=== PATIENT | male | born 1955 | race Caucasian/White ===

== ENCOUNTER 2019-10-10 09:08 | Inpatient (IN) ==
--- NOTE | 2019-10-10 09:53 | Diag Imaging Result Doc PS360 ---
EXAM: CHEST-PORTABLE 10/10/2019 HISTORY: stroke like symptoms TECHNIQUE: AP portable semiupright at 0949 COMMENT: There are diffuse nodular opacities over the left mid and lower lung suggesting pneumonia. The right lung is clear. There are no previous studies. IMPRESSION: Left lower lobe pneumonia. Electronically signed by Ananda Sosa 10/10/2019 9:51 AM
[2019-10-10 10:09] LABS: BASO# 0.02 X1000 (0.0-0.2); BASO% 0.3 % (0.0-0.8); HEMATOCRIT 45.7 % (42.0-52.0); HEMOGLOBIN 15.7 g/dL (14.0-18.0); IMM GRAN# 0.05 X1000 (0.0-0.04); IMM GRAN% 0.7 % (0.0-0.5); LYMPH# 0.65 X1000 (1.2-3.4); LYMPH% 8.9 % (20.5-51.1); MCH 31.3 PG (27-31); MCHC 34.4 g/dL (33-37); MCV 91.2 FL (81-99); MONO# 0.47 X1000 (0.11-0.59); MONO% 6.4 % (1.7-9.3); MPV 9.7 FL (7.4-10.4); NEUT# 6.15 X1000 (1.4-6.5); NEUT% 83.7 % (42.2-75.2); PLT 241 X1000 (130-400); RBC 5.01 XMIL (4.7-6.1); RDW 13.4 % (11.5-14.5); WBC 7.34 X1000 (4.8-10.8)
--- NOTE | 2019-10-10 10:10 | Diag Imaging Result Doc PS360 ---
EXAM: CT HEAD W/O CONTRAST HISTORY: altered mental status TECHNIQUE: CT head without intravenous contrast COMPARISON: None. FINDINGS: No parenchymal hemorrhage. No epidural or subdural hematoma. No subarachnoid hemorrhage. No mass identified on this noncontrasted exam. No hydrocephalus. Prominent mucus in the frontal, ethmoid, maxillary, and sphenoid sinuses.. IMPRESSION: 1.No hemorrhage 2.Sinusitis This exam was performed using automated exposure control, adjustment of mA or kV according to patient size, and/or use of iterative reconstruction technique. Electronically signed by Chong Miller 10/10/2019 10:08 AM
[2019-10-10] MEDS ORDERED: DUONEB (A & A) INH ONE (10:20)
[2019-10-10 10:21] LABS: INR 1.11; PROTIME 14.5 Seconds (11.0-16.0)
[2019-10-10 10:22] LABS: ALBUMIN 3.5 g/dL (3.5-5.0); CALCIUM 8.6 mg/dL (8.8-10.2); CREATININE 1.3 mg/dL (0.7-1.2); POTASSIUM 4.1 mmol/L (3.5-5.1); PTT 38.2 Seconds (22.3-41.8); TOTAL BILIRUBIN 0.83 mg/dL (0.20-1.00); TOTAL PROTEIN 6.9 g/dL (6.3-8.3)
[2019-10-10 10:29] LABS: ALLEN TEST YES; BE -1.4 mmoll (-3.0-3.0); BLOOD TYPE ARTERIAL; HCO3-(ACT) 23.5 mmoll (20.0-26.0); METHB 1.1 % (0.0-1.5); O2(CT) 19.4 mL/dL (15.0-23.0); PCO2(98.6) 32 mmHg (35-45); SAMPLE BLOOD; SAO2 88.6 % (95.0-100.0); THB 16.1 g/dL (11.5-17.4); pH(98.6) 7.44 (7.35-7.45)
[2019-10-10 10:31] LABS: PO2(98.6) 47 mmHg (60-100)
--- NOTE | 2019-10-10 10:31 | EKG Report ---
Test Performed on : 10/10/2019 10:29:50 AM Test Reason : Stroke like symptoms Blood Pressure : / mmHG Vent. Rate : 080 BPM Atrial Rate : 080 BPM P-R Int : 126 ms QRS Dur : 126 ms QT Int : 386 ms P-R-T Axes : 046 -60 083 degrees QTc Int : 445 ms Sinus rhythm. with premature atrial complexes. Left axis deviation Nonspecific intraventricular block Abnormal ECG No previous ECGs available Unconfirmed Result
[2019-10-10 10:32] LABS: MODALITY CANNULA
[2019-10-10] MEDS ORDERED: D50W SYRINGE IV ONE (10:33)
[2019-10-10] MEDS ORDERED: D50W SYRINGE ONE (10:38)
[2019-10-10] MEDS ORDERED: LEVAQUIN 500 MG/D5W 500 MG/100 ML IVPB IV ONE (11:09)
[2019-10-10 11:18] LABS: URINE SOURCE CATH
--- NOTE | 2019-10-10 11:19 | PROVIDER DOCUMENTATION ---
This chart was entered by Nicole Robbins Scribe, acting as scribe for Yrn Hernandez MD. HPI-Neurological Disorder - General Chief Complaint: Altered Mental Status Stated Complaint: AMS Time Seen by Provider: 10/10/19 09:38 Source: RN/ (RN), EMS Allergies/Adverse Reactions: Patient Allergies Allergy/AdvReac Type Severity Reaction Status Date / Time No Known Allergies Allergy Verified 10/10/19 11:13 Home Medications: Home Medication List Medication Instructions Recorded Confirmed Last Taken Type Unobtainable [Home Meds 10/10/19 10/10/19 Unknown History Unobtainable] - History of Present Illness-Neuro Nature of Presenting Problem: Patient is a 64 year old male who presents to the ED via EMS with altered mental status. EMS states patient's roommate found patient in the floor multiple times this morning. Patient is alert but does not answer questions appropriately. EMS reports patient's O2 sat was 82% on room air on their arrival. Severity: reports: mild Onset/Duration: reports: unsure Timing: reports: still present Context: reports: other (AMS) Character of Altered Mental Status: reports: confused Cognitive Baseline: alert but confused Similar Symptoms Previously?: Yes Recently seen or treated by another doctor?: No Review of Systems - Adult - REVIEW OF SYSTEMS - ADULT ROS:: unobtainable per condition Constitutional: reports: no symptoms reported Eyes: reports: no symptoms reported Ears, Nose, Mouth & Throat: reports: no symptoms reported Cardiovascular: reports: no symptoms reported Respiratory: reports: no symptoms reported Gastrointestinal: reports: no symptoms reported Genitourinary: reports: no symptoms reported Musculoskeletal: reports: no symptoms reported Integumentary: reports: no symptoms reported Neurological: reports: no symptoms reported Psychiatric: reports: no symptoms reported Endocrine: reports: no symptoms reported Hematologic/Lymphatic: reports: no symptoms reported Allergic/Immunologic: reports: no symptoms reported All Other Systems: Reviewed and Negative Past History - Adult - PAST MEDICAL HISTORY-ADULT Review of Records: reports: Old Records Reviewed, Nursing Assessment Review, Medications Reviewed, Social history reviewed & non-contributory. Major Childhood Illnesses: reports: denies history Cardiovascular: reports: denies history Respiratory: reports: denies history Gastrointestinal: reports: denies history Obstetrical/Gynecological: reports: denies history Genitourinary: reports: denies history Musculoskeletal: reports: denies history Neurological: reports: denies history Endocrine/Immune: reports: denies history Other Conditions: reports: denies history - IMMUNIZATION STATUS Childhood Immunizations: See Nurse Assessment Flu Vaccine: See Nurse Assessment - FAMILY HISTORY Family History: reviewed, not pertinent - SOCIAL HISTORY Smoking: other (unable to assess per patient's condition) Substance Use: other (unable to assess per patient's condition) Living Situation: friend Physical Exam- Neurological - Physical Exam-Neuro Initial Vital Signs Reviewed: Yes General Appearance: alert, other (confused). negative: lethargic HENMT: dental decay, other (dry mucous membranes). negative: pharyngeal erythema Head Injury: no evidence of injury. negative: active bleeding, lacerations Respiratory: chest non-tender, lungs clear, normal breath sounds. negative: rales, stridor Cardiovascular: regular rate, rhythm, no gallop. negative: systolic murmur Abdominal Exam: normal bowel sounds, non tender, soft. 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 negative: cyanosis, erythema Psych/Mental Status: disheveled, other (confused). negative: normal mood/affect Progress - PLAN OF CARE/RESULTS Progress/Plan/Lab Results: Vital Signs - 8 hr 10/10/19 09:15 10/10/19 09:27 10/10/19 09:30 Temperature 99.0 F Pulse Rate 80 81 Respiratory Rate 22 23 Blood Pressure 116/70 O2 Sat by Pulse Oximetry 91 L 87 L 75 L 10/10/19 09:31 10/10/19 10:42 Temperature Pulse Rate 80 75 Respiratory Rate 31 H 39 H Blood Pressure 106/60 125/68 O2 Sat by Pulse Oximetry 87 L 88 L Laboratory Results - last 24 hr 10/10/19 10/10/19 10/10/19 09:37 09:37 09:37 WBC 7.34 RBC 5.01 Hgb 15.7 Hct 45.7 MCV 91.2 MCH 31.3 H MCHC 34.4 RDW Std Deviation 13.4 Plt Count 241 MPV 9.7 Immature Gran % (Auto) 0.7 H Neut % (Auto) 83.7 H Lymph % (Auto) 8.9 L Traill % (Auto) 6.4 Eos % (Auto) 0.0 Baso % (Auto) 0.3 Immature Gran # (Auto) 0.05 H Neut # (Auto) 6.15 Lymph # (Auto) 0.65 L Traill # (Auto) 0.47 Eos # (Auto) 0.00 Baso # (Auto) 0.02 PT 14.5 INR 1.11 PTT (Actin FS) 38.2 Specimen Type Sample Site pH pCO2 pO2 HCO3 Base Excess Oxyhemoglobin ABG O2 Sat (Calculated) ABG O2 Saturation ABG Carboxyhemoglobin ABG Methemoglobin Angelito Test A-a O2 Difference Total Hemoglobin Lactate Blood Gas Modality FiO2 % Sodium 134 L Potassium 4.1 Chloride 90 L Carbon Dioxide 24 L Anion Gap 20 BUN 36 H Creatinine 1.3 H Estimated GFR/1.73 m2 55 BUN/Creatinine Ratio 28 Glucose 77 Calculated Osmolality 275 Calcium 8.6 L Total Bilirubin 0.83 AST 141 H ALT 44 Alkaline Phosphatase 59 Troponin T High Sens Total Protein 6.9 Albumin 3.5 Globulin 3.4 Albumin/Globulin Ratio 1.0 10/10/19 10/10/19 09:37 10:19 WBC RBC Hgb Hct MCV MCH MCHC RDW Std Deviation Plt Count MPV Immature Gran % (Auto) Neut % (Auto) Lymph % (Auto) Traill % (Auto) Eos % (Auto) Baso % (Auto) Immature Gran # (Auto) Neut # (Auto) Lymph # (Auto) Traill # (Auto) Eos # (Auto) Baso # (Auto) PT INR PTT (Actin FS) Specimen Type ARTERIAL Sample Site R RADIAL pH 7.44 pCO2 32 L pO2 47 L* HCO3 23.5 Base Excess -1.4 Oxyhemoglobin 86.0 L* ABG O2 Sat (Calculated) 19.4 ABG O2 Saturation 88.6 L ABG Carboxyhemoglobin 1.90 ABG Methemoglobin 1.1 Angelito Test YES A-a O2 Difference 113.0 Total Hemoglobin 16.1 Lactate 1.80 Blood Gas Modality CANNULA FiO2 % 28.0 Sodium Potassium Chloride Carbon Dioxide Anion Gap BUN Creatinine Estimated GFR/1.73 m2 BUN/Creatinine Ratio Glucose Calculated Osmolality Calcium Total Bilirubin AST ALT Alkaline Phosphatase Troponin T High Sens 36 H* Total Protein Albumin Globulin Albumin/Globulin Ratio Orders Category Date Time Status Cardiac Monitoring DIRECTED Care 10/10/19 09:39 Active Finger Stick Blood Sugar (ED) DIRECTED Care 10/10/19 09:39 Active Oxygen Therapy- ED Nursing DIRECTED Care 10/10/19 09:39 Active Saline Loc NOW Care 10/10/19 09:39 Active CHEST-PORTABLE [RAD] Stat Exams 10/10/19 09:[address] HEAD W/O CONTRAST [CT] Stat Exams 10/10/19 09:39 Completed ABG [RESP] Routine Lab 10/10/19 10:19 Completed BLOOD CULTURE [BLDCUL] Stat Lab 10/10/19 09:37 Ordered CBC WITH ELECTRONIC DIFF [HEME] Stat Lab 10/10/19 09:37 Completed COMPREHENSIVE METABOLIC PANEL [CHEM] Stat Lab 10/10/19 09:37 Completed PROTIME WITH INR [COAG] Stat Lab 10/10/19 09:37 Completed PTT [COAG] Stat Lab 10/10/19 09:37 Completed TROPONIN T HIGH SENSITIVITY Stat Lab 10/10/19 09:37 Completed URINALYSIS W/POSS RFLX CULT [URINALYSIS] Stat Lab 10/10/19 10:30 Ordered URINE DRUG SCREEN Stat Lab 10/10/19 10:30 Ordered 0.9% Sodium Chloride Inj [Ns] 1,000 ml Med 10/10/19 09:39 Active IV 125 mls/hr Albuterol 2.5MG/Ipratrop 0.5MG [Duoneb (A & A)] Med 10/10/19 10:20 Discontinued 3 ml INH NOW ONE Dextrose 50% Syringe [D50w Syringe] Med 10/10/19 10:38 Discontinued 50 ml .ROUTE .STK-MED ONE Dextrose 50% Syringe [D50w Syringe] Med 10/10/19 10:33 Discontinued 50 ml IV NOW ONE Levofloxacin 500 mg/D5w [Levaquin 500 mg/D5w] Med 10/10/19 11:09 Active 500 mg in 100 ml IV NOW Aerosol Treatments Routine Oth 10/10/19 10:20 Active Aerosol Treatments Stat Oth 10/10/19 10:20 Active EKG [EKG] Stat Ther 10/10/19 09:39 Draft Result Diagrams: 10/10/19 09:37 10/10/19 09:37 - EKG 1 Time of EKG reading by physician:: 10:29 EKG Read and Signed by:: Yrn Hernandez EKG Interpretation (*Must complete 3 of following elements*): Abnormal Rate: 80 Rhythm: sinus rhythm with premature atrial complexes Occidental: left AR Interval: normal Comments: nonspecific intraventricular block - XRAY 1 XRAY Study: Chest Impression: See EMR Report ( EXAM: CHEST-PORTABLE 10/10/2019 HISTORY: stroke like symptoms TECHNIQUE: AP portable semiupright at 0949 COMMENT: There are diffuse nodular opacities over the left mid and lower lung suggesting pneumonia. The right lung is clear. There are no previous studies. IMPRESSION: Left lower lobe pneumonia. Electronically signed by Ananda Sosa 10/10/2019 9:51 AM 10/10/19 0951 Interpreting Physician: Ananda Sosa MD Dictated Date/Time: 10/10/19 0950 cc: Yrn Hernandez MD;) - CT/MRI 1 CT Study: Head Impression: See EMR Report ( EXAM: CT HEAD W/O CONTRAST HISTORY: altered mental status TECHNIQUE: CT head without intravenous contrast COMPARISON: None. FINDINGS: No parenchymal hemorrhage. No epidural or subdural hematoma. No subarachnoid hemorrhage. No mass identified on this noncontrasted exam. No hydrocephalus. Prominent mucus in the frontal, ethmoid, maxillary, and sphenoid sinuses.. IMPRESSION: 1.No hemorrhage 2.Sinusitis This exam was performed using automated exposure control, adjustment of mA or kV according to patient size, and/or use of iterative reconstruction technique. Electronically signed by Chong Miller 10/10/2019 10:08 AM 10/10/19 1008 Interpreting Physician: Chong Miller MD Dictated Date/Time: 10/10/19 1007 cc: Yrn Hernandez MD;) - CONSULTS/PCP/HOSPITALIST Notification #1 *Consult/PCP/Hospitalist*: Dr. Clinton Time Discussed: 10:42 Reason/Comments: Dr. Hernandez consulted with Dr. Clinton about patient Consult Disposition: other (admit to hospitalist) #2 Consult: KELLY Enriquez for Hospitalist Time Discussed: 11:06 Reason/Comments: Dr. Hernandez consulted with Zoe about patient. Consult Disposition: Will see in ED, Admit Departure - Departure Date of Disposition Decision: 10/10/19 Time of Disposition Decision: 11:10 DIAGNOSIS: Pneumonia, NSTEMI (non-ST elevated myocardial infarction), Altered mental status, Renal insufficiency, Hypoxia Disposition: ADMITTED INPATIENT 09 Certified Medical Emergency: Emergent Condition: Fair Referrals and Follow-Ups: None,PCP [Primary Care Provider] - - Critical Care Note This patient required my direct & personal management of CC.: No Total Time (mins): 35 Critical Care Statement: This patient required my direct personal management to treat or rule out processes, the absence of which, could potentiallly result in sudden, clinically significant life or limb threatening deterioration. Attestation - Physician/ KAYLEIGH Attestation Patient care was provided by Advanced Practice Provider:: No The physician spent face to face time with patient:: Yes Advanced Practice Provider documentation review:: Supervising physician onsite and consulted in the evaluation and care of this patient. The physician did have a face to face encounter with the patient. This chart was documented by the indicated scribe, (Nicole Robbins Scribe) and accurately reflects the services I performed and decisions made by me, Yrn Hernandez MD, as attested by the provider's signature.
[2019-10-10] MEDS ORDERED: XOPENEX NEB INH ONE (11:20)
[2019-10-10 11:23] LABS: BILIRUBIN URINE NEGATIVE (NEGATIVE); BLOOD URINE LARGE (NEGATIVE); COLOR YELLOW; GLUCOSE URINE NEGATIVE (NEGATIVE); KETONE URINE 40 mg/dL (NEGATIVE); LEUKOCYTES URINE NEGATIVE (NEGATIVE); NITRITE URINE NEGATIVE (NEGATIVE); PROTEIN URINE 300 mg/dL (NEGATIVE); SP GRAVITY URINE 1.023; TURBIDITY URINE HAZY (CLEAR); UROBILINOGEN URINE 2 mg/dL (NORMAL)
[2019-10-10 11:30] LABS: UR EPITHELIAL CELLS <10 /HPF (<10); URINE BACTERIA NEGATIVE /HPF; URINE RBC <10 /HPF (<10); URINE WBC 20-40 /HPF (<10)
[2019-10-10] MEDS ORDERED: NS NEB INH SCH (11:30)
[2019-10-10 11:52] LABS: URINE CASTS GRANULAR PRESENT; URINE CRYSTALS NONE SEEN
[2019-10-10 12:07] LABS: UR AMPHETAMINES QUAL NONE DETECTED (NONE DETECT); UR BARBITUATES QUAL NONE DETECTED (NONE DETECT); UR BENZODIAZEPIN QUAL NONE DETECTED (NONE DETECT); UR CANNABINOIDS QUAL NONE DETECTED (NONE DETECT); UR COCAINE QUAL NONE DETECTED (NONE DETECT); UR METHADONE QUAL NONE DETECTED (NONE DETECT); UR OPIATES QUAL NONE DETECTED (NONE DETECT); UR OXYCODONE QUAL NONE DETECTED (NONE DETECT); UR PCP QUAL NONE DETECTED (NONE DETECT)
[2019-10-10] MEDS: DUONEB (A & A) INH SCH ×4 (12:13→23:20)
[2019-10-10] MEDS ORDERED: DUONEB (A & A) INH PRN (12:13)
[2019-10-10] MEDS ORDERED: ASPIRIN PR ONE (12:13)
[2019-10-10] MEDS ORDERED: NS 1,000 ML IV ONE (12:13)
--- NOTE | 2019-10-10 13:03 | PROVIDER PROGRESS NOTE ---
Progress Note Pulmonary additional note: Full dictation to follow. I have seen the case, reviewed the EMR, labs, latest images and other medical te ams notes. Also reviewed the SET OFF PRESS OPERATOR notes and signed necessary form(s). I have noted changes in condition if any from yesterday and did orders. Please see also signed progress sheet. Prognosis: Guarded for now. I reviewed notes from ER MD and CXR A. Respiratory failure. Pneumonia. Hypoxia. I will consider CTA if pneumonia doesn't explain hypoxia completely. I spent 33 minutes in this process.
--- NOTE | 2019-10-10 14:00 | PROVIDER PROGRESS NOTE ---
Progress Note Patient was seen and examined. A full dictation to follow.
[2019-10-10 14:22] LABS: URINE SOURCE CATH
[2019-10-10 14:23] LABS: CK INDEX 0.3 (0.0-2.5); CK-MB 6.3 ng/mL (0.0-5.0)
[2019-10-10 14:33] LABS: BILIRUBIN URINE NEGATIVE (NEGATIVE); BLOOD URINE LARGE (NEGATIVE); COLOR YELLOW; GLUCOSE URINE 200 mg/dL (NEGATIVE); KETONE URINE 20 mg/dL (NEGATIVE); LEUKOCYTES URINE NEGATIVE (NEGATIVE); NITRITE URINE NEGATIVE (NEGATIVE); PROTEIN URINE 200 mg/dL (NEGATIVE); SP GRAVITY URINE 1.021; TURBIDITY URINE HAZY (CLEAR); UROBILINOGEN URINE 2 mg/dL (NORMAL)
[2019-10-10 14:41] LABS: UR EPITHELIAL CELLS >10 /HPF (<10); URINE BACTERIA NEGATIVE /HPF; URINE RBC <10 /HPF (<10); URINE WBC <10 /HPF (<10)
--- NOTE | 2019-10-10 14:51 | EKG Report ---
Test Performed on : 10/10/2019 2:37:51 PM Test Reason : Elevated Troponin Blood Pressure : / mmHG Vent. Rate : 087 BPM Atrial Rate : 087 BPM P-R Int : 152 ms QRS Dur : 102 ms QT Int : 340 ms P-R-T Axes : 080 -61 080 degrees QTc Int : 409 ms Sinus rhythm. with occasional premature ventricular complexes. Left anterior fascicular block Abnormal ECG When compared with ECG of 10-OCT-2019 10:29, (Unconfirmed) premature ventricular complexes. are now present premature atrial complexes. are no longer present Confirmed by Azael GOLDBERG, Gareth Sunshine ([id number]) on 10/11/2019 10:20:35 AM
[2019-10-10 14:52] LABS: URINE CASTS GRANULAR PRESENT
[2019-10-10] MEDS ORDERED: LEVAQUIN 500 MG/D5W 500 MG/100 ML IVPB ONE (17:01)
--- NOTE | 2019-10-10 17:57 | Diag Imaging Result Doc PS360 ---
EXAM: CT THORAX W/O CONTRAST HISTORY: pneumonia extensive left lung TECHNIQUE: CT chest without intravenous contrast COMPARISON: None. FINDINGS: No pleural effusions. No cardiomegaly. No aortic aneurysm. Mildly prominent mediastinal and hilar lymph nodes. Several of these are calcified in the left hilum. There are dense nodular infiltrates in the left lower lobe with smaller infiltrates inferiorly in the left upper lobe and inferiorly in the right lower lobe. There are also small infiltrates in the right upper lobe. Air bronchograms are present in the left lower lobe. Left upper lobe granuloma. IMPRESSION: Bilateral pneumonia most pronounced in the left lower lobe. This exam was performed using automated exposure control, adjustment of mA or kV according to patient size, and/or use of iterative reconstruction technique. Electronically signed by Chong Miller 10/10/2019 5:54 PM
[2019-10-10] MEDS: MAXIPIME 2 GM/NS 2 GM/100 ML IVPB IV SCH (19:05)
--- NOTE | 2019-10-10 19:35 | HISTORY AND PHYSICAL ---
PRIMARY CARE PROVIDER: Unknown. CHIEF COMPLAINT: Per EMR, altered mental status. HISTORY OF PRESENT ILLNESS: Mr. Waldron is a 64-year-old gentleman who presented to the ED via EMS with altered mental status. EMS stated that the patient's roommate found him on the floor multiple times. His O2 saturation was found to be 82% on room air. ED spoke with the patient's estranged , Vandana, who stated they have been estranged since 2009. She did state that he had smoked marijuana laced with something 2 years ago and has had issues with his mental state since that time. She believes that he has asthma, but is not on any medications. She believes his father has dementia, hypoxia, as well as heart issues. Workup in the ED showed positive troponins. Head CT did not show any thing acute. Chest x-ray showed a left lower lobe pneumonia. He was also hypoxemic and hypercarbic and placed on BiPAP. PAST MEDICAL HISTORY: Really unknown, besides some asthma. PAST SURGICAL HISTORY: Unknown. FAMILY HISTORY: Unknown. SOCIAL HISTORY: He lives with a roommate. REVIEW OF SYSTEMS: Hard to obtain secondary to the patient being altered. PHYSICAL EXAMINATION: VITAL SIGNS: Temperature was 99 degrees, heart rate 87, respirations 43, blood pressure 123/80, O2 is 99% on BiPAP. GENERAL: Mr. Waldron is a 64-year-old gentleman who appears unkept, lying on the stretcher on BiPAP. He does not awaken to voice. He awakens to tactile stimuli. He was able to state his name and then falls back to sleep. He could not tell me where he was. He fell back asleep after each question. HEENT: Atraumatic, normocephalic. PERRL. NECK: Supple. Trachea midline. CARDIOVASCULAR: S1, S2 appreciated. No murmurs, gallops, or rubs noted. RESPIRATORY: Lung sounds decreased airway entry throughout all lung rodas. GI: Appear to be soft, nontender, nondistended. Hypoactive bowel sounds in 4 quadrants. EXTREMITIES: Lower extremities negative for edema. NEUROLOGIC: The patient was lethargic. He did only awaken to tactile stimuli. He did know his name, did not really answer any other questions, fell back asleep easily. DIAGNOSTIC DATA: Head CT: No hemorrhage, sinusitis. Chest x-ray: Left lower lobe pneumonia. LABORATORY DATA: White count 7, hemoglobin and hematocrit 15 and 45, platelet count is 241,000. ABG: PH 7.44, pCO2 32, PO2 47. Bicarb 23, O2 of 88. Lactate 1.8. Chemistry: Sodium 134, potassium 4.1, BUN 36, creatinine 1.3, blood glucose is 116, AST 141. Troponin was 36. Toxicology screen was negative. ASSESSMENT AND PLAN: 1. Acute respiratory failure secondary to hypoxemia and left lower lobe pneumonia. The patient was initially put on nasal cannula, Ventimask and BiPAP. He is being followed by pulmonology. Continue to follow their recommendations. 2. Left lower lobe pneumonia. The patient does not have a white count. His lactate is normal. Low-grade fever, but not tachycardic. Continue with IV antibiotics, bronchodilators, and aggressive pulmonary toilet. Again, followed by pulmonology. 3. Positive troponin. Electrocardiogram showing a sinus rhythm with premature atrial contractions and a left axis deviation, nonspecific interventricular block. We will continue to trend his cardiac enzymes. Check an echocardiogram. Consult Dr. Clinton. We will do full-dose aspirin p.r. now. 4. Altered mental status. Unsure if this is related to infectious etiology or from his hypoxemia. His head CT was negative. Continue to monitor his neural status closely. 5. Acute kidney injury. We will continue with IV hydration. 6. Further recommendation to follow physician evaluation, laboratory and pending diagnostic data with a D-dimer and flu swab, and echocardiogram. Dictated by KELLY Woodruff for Tabby Travis MD cc: MD Jason Oreilly MD Mamoun I. Najjar, MD I performed a face to face encounter on the patient. I reviewed all labs and imaging on the patient. I agree with the H&P as dictated. [facility]
[2019-10-10] MEDS: ZYVOX 600 MG/D5W 600 MG/300 ML IVPB IV SCH (20:22)
[2019-10-10] MEDS: NS 1,000 ML IV PRN (20:31)
--- NOTE | 2019-10-10 21:29 | CARDIOLOGY CONSULTATION ---
DATE: 10/10/2019 CHIEF COMPLAINT: Dyspnea. REASON FOR CONSULTATION: Abnormal troponin level, suspected myocardial infarction. HISTORY: This is a 64-year-old male who was brought to the ER apparently by his roommate. There is no really way of obtaining any history from him. Right now he is in respiratory distress with a BiPAP mask on, low oxygen and low blood pressure. The patient appears to be confused, and he cannot give me a straight answer. Initially, they have done a series of studies including a head CT that has been reported as no hemorrhage and presence of sinusitis. A chest x-ray was done that is consistent with left lower lobe pneumonia. An electrocardiogram has been done that is really benign. It shows sinus rhythm with a left axis deviation. No ST-segment shifts. This EKG has been repeated at 2:37 p.m. and looks the same. PVC was noted on the second one. They have done 2 high sensitivity troponin levels. The first one was 36 at 9:37 a.m. The second one was 37 ng/L at 12:59 p.m. CK-MB fraction is 6.3; however, the index is 0.3. CPK total 1874. The reported complaint was that he was falling multiple times at home. His oxygen level was very low on the blood gases. pO2 was 47. pCO2 was 32, pH 7.44. Right now, he has been given levofloxacin inhalers and IV fluids. PAST MEDICAL HISTORY: Not obtainable. PAST SURGICAL HISTORY: Not obtainable. SOCIAL HISTORY: Not obtainable. FAMILY HISTORY: Not obtainable. MEDICATION LIST: Unknown. REVIEW OF SYSTEMS: Not obtainable at this time. PHYSICAL EXAMINATION: Vital signs: Blood pressure 107/82, temperature is 97.4 degrees, pulse 94, respirations 27. General: The patient is awake, confused. His skin is mottled, especially in the knees and feet. Pulses are diminished. He is skinny. Neck: Veins are not distended. Chest: Shows decreased excursion of the bases with diminished breath sounds bilaterally. I do not hear rales. Cardiovascular: Heart sounds are regular rhythmic. I do not hear a gallop or murmur. Abdomen: Soft, nontender. No masses or hepatomegaly. Neurological: He appears to be confused. Moves 4 extremities. LABORATORY DATA: His white cell count is 7340, hemoglobin 15.7, hematocrit 45.7. MCV is 91.2. IMPRESSION: 1. Patient who presents apparently with left lower lobe pneumonia with confusion, probably toxic. 2. Hypoxemia secondary to pneumonia. 3. Elevation in troponin level at this time is really nonspecific. It probably corresponds to pneumonia. His EKG does not suggest any acute ischemic cardiac process. RECOMMENDATIONS: At this time, we have ordered additional testing including D-dimer, C-reactive protein, blood culture, sedimentation rate. A 2D echocardiogram has been requested. We will review it, and we will give further advice. The patient at this time is noncooperative. I will have to probably fill in all these blanks in his database once he is able to tell me something. At this time, he is really not in any condition to provide any information. We will follow his course in the hospital. At this time, the hospitalist service is in charge of his care. cc: Jason Clinton MD
[2019-10-10 21:30] LABS: CK INDEX 0.3 (0.0-2.5); CK-MB 3.83 ng/mL (0.0-5.0)
--- NOTE | 2019-10-10 22:59 | ECHO REPORT ---
ORDER DATE: 10/10/2019 MEASUREMENTS: Left ventricular internal diameter in diastole 3.4. SUMMARY: 1. Very difficult study for interpretation due to very limited acoustic window quality. Intravenous echocontrast agent Optison was utilized to enhance endocardial definition. 2. The aortic valve is not well imaged. Peak gradient across the aortic valve is less than 10 mmHg, thus excluding any significant aortic stenosis. Mitral and tricuspid valves are without gross structural abnormality. Pulmonic valve is not well demonstrated. The aortic root is normal in size. 3. Grossly normal left ventricular dimensions demonstrated. The estimated left ventricular ejection fraction appears to be at least 50%. Regional wall motion analysis is challenging, given limitations of the study. There appears to be hypokinesis of the apical anterior wall. The left atrium, right atrium and right ventricle are grossly normal in size with grossly preserved right ventricular systolic function. 4. No pericardial effusion. 5. Inferior vena cava not well demonstrated. cc: Ben Tello MD
[2019-10-11] MEDS: NS 1,000 ML IV PRN (02:19)
[2019-10-11] MEDS: DUONEB (A & A) INH SCH ×6 (03:35→23:17)
[2019-10-11] MEDS: MAXIPIME 2 GM/NS 2 GM/100 ML IVPB IV SCH ×2 (03:53→17:12)
--- NOTE | 2019-10-11 04:17 | CONSULTATION ---
DATE OF CONSULTATION: 10/10/2019 . REQUESTING PROVIDER: Dr. Tabby Travis. REASON FOR CONSULTATION: Respiratory failure, pneumonia. HISTORY OF PRESENT ILLNESS: This is a 64-year-old male with no medical history. He presented to the ER via EMS this morning with altered mental status and oxygen desaturation. Initial chest x-ray revealed left lower lobe pneumonia. Blood work showed elevated D-dimer, hypoxemia with PO2 of 47, elevated BUN and creatinine, and a critically high troponin T high sensitivity. Urinalysis positive for ketones, protein, glucose, with a large amount of urine blood. The patient currently is lying in the ER stretcher. He is on a BiPAP mask. He did not answer questions appropriately. His urine does have a strong odor. All other information is obtained from the E-chart. PAST MEDICAL AND SURGICAL HISTORY: Unknown. FAMILY HISTORY: Unknown. SOCIAL HISTORY: The patient apparently lives in an apartment with a roommate. Unknown about tobacco, alcohol or illicit drug use. ALLERGIES: Unknown. REVIEW OF SYSTEMS: Unable to be obtained. PHYSICAL EXAMINATION: Vital Signs: Temperature 97.4, blood pressure 124/80, pulse 87, respiratory rate 43, oxygen saturation 99% with a BiPAP mask on. General: Some moderate respiratory distress. HEENT: Atraumatic, normocephalic. Trachea midline. Oral mucosa pink and dry. Respiratory: Tachypneic. Increased work of breathing, but no accessory muscle use. Clear to auscultation bilaterally. Cardiovascular: Regular rate and rhythm. Gastrointestinal: Soft, nontender, nondistended. Normoactive bowel sounds in all 4 quadrants. Extremities: No pedal edema. No cyanosis. No clubbing. Dorsalis pedis 1+ bilaterally. Neurologic: Alert but confused, not answering questions appropriately, not following commands. ASSESSMENT: This is a 64-year-old male with no medical history. He has been admitted with pneumonia, non ST-elevated myocardial infarction, altered mental status, renal insufficiency, and hypoxia. 1. Acute hypoxic respiratory failure. 2. Pneumonia most pronounced in the left lower lobe. 3. Non ST-elevated myocardial infarction. 4. Altered mental status. 5. Renal insufficiency with possible UTI. PLAN: 1. Continue supplemental oxygen. Continue BiPAP as needed. 2. Continue antibiotic and bronchodilators. 3. Follow up with troponin T high sensitivity, CBC, CMP, ABG, blood culture, urine culture and sputum culture. CT of the thorax is pending. 4. Further recommendations pending hospital course. Thank you for the courtesy of this consultation. Dictated by KELLY Min for Marv Campbell MD cc: KELLY Min MD [facility]
[2019-10-11 04:47] LABS: ALLEN TEST YES; BE -1.8 mmoll (-3.0-3.0); BLOOD TYPE ARTERIAL; HCO3-(ACT) 23.5 mmoll (20.0-26.0); METHB 0.1 % (0.0-1.5); MODALITY VENTIMASK; O2(CT) 24.6 mL/dL (15.0-23.0); O2HB 97.4 % (95.0-99.0); PCO2(98.6) 42 mmHg (35-45); PO2(98.6) 89 mmHg (60-100); SAMPLE BLOOD; SAO2 100.6 % (95.0-100.0); pH(98.6) 7.36 (7.35-7.45)
[2019-10-11] MEDS: ZYVOX 600 MG/D5W 600 MG/300 ML IVPB IV SCH ×2 (06:00→17:12)
--- NOTE | 2019-10-11 07:17 | Diag Imaging Result Doc PS360 ---
EXAM: CHEST-PORTABLE 10/11/2019 HISTORY: Pneumonia TECHNIQUE: AP portable at 0552 COMMENT: There are alveolar opacities throughout the left lower lobe and to some extent in the right middle lobe. The latter is worse than on the previous study of 10/10/2019. IMPRESSION: Bronchopneumonia. Electronically signed by Ananda Sosa 10/11/2019 7:15 AM
[2019-10-11 07:18] LABS: BASO# 0.01 X1000 (0.0-0.2); BASO% 0.1 % (0.0-0.8); HEMOGLOBIN 13.2 g/dL (14.0-18.0); IMM GRAN# 0.02 X1000 (0.0-0.04); IMM GRAN% 0.2 % (0.0-0.5); LYMPH# 0.53 X1000 (1.2-3.4); LYMPH% 6.3 % (20.5-51.1); MCH 31.3 PG (27-31); MCHC 33.8 g/dL (33-37); MCV 92.4 FL (81-99); MONO# 0.43 X1000 (0.11-0.59); MONO% 5.1 % (1.7-9.3); MPV 9.9 FL (7.4-10.4); NEUT# 7.38 X1000 (1.4-6.5); NEUT% 88.3 % (42.2-75.2); PLT 203 X1000 (130-400); RBC 4.22 XMIL (4.7-6.1); RDW 13.4 % (11.5-14.5); WBC 8.37 X1000 (4.8-10.8)
[2019-10-11] MEDS ORDERED: NS 1,000 ML IV PRN (07:49)
[2019-10-11 07:50] LABS: AGAP 14; ALB/GLOB RATIO 1.1; ALBUMIN 2.7 g/dL (3.5-5.0); ALKALINE PHOSPHATASE 55 U/L (32-122); BUN 34 mg/dL (8-22); CALCIUM 7.3 mg/dL (8.8-10.2); CHLORIDE 102 mmol/L (98-107); COSMO 284; CREATININE 1.1 mg/dL (0.7-1.2); ESTIMATED GFR > 60; GLUCOSE 119 mg/dL (70-104); GOT 100 U/L (10-34); GPT 33 U/L (10-44); POTASSIUM 3.9 mmol/L (3.5-5.1); SODIUM 138 mmol/L (136-145); TCO2 22 mmol/L (25-35); TOTAL BILIRUBIN 0.76 mg/dL (0.20-1.00); TOTAL PROTEIN 5.1 g/dL (6.3-8.3)
[2019-10-11 08:24] LABS: BANDS 2 % (0-1); BASO 2 % (0-1); LYMPHS 3 % (21-51); MONO 5 % (1-9); NRBC 1 % (0-0); SEGS 88 % (42-75)
--- NOTE | 2019-10-11 09:54 | PROVIDER PROGRESS NOTE ---
Progress Note Dr. Campbell Progress Note/Pulmonary and or critical care We appreciated progress of care, Complications, change in diagnosis, and instructions to patient under direct supervision of Dr. Campbell. Subjective: We note the level of consciousness, bed (chair) position, family presence (if any), level of lethargy, feeling of symptoms, and changes from baseline condition/symptom. The patient still appears to be confused with hallucination at times although he is clinically improving. He does not answer simple questions appropriately. He is on NC 3L and tolerates well. No fever overnight. BP stays low. Patient denies current tobacco use, but apparently per his , he is a daily heavy smoker. Objective: Vital Signs: We reviewed EMR current values for Pulse rate, Blood pressure, Pulse rate, respiratory rate and Pulse oximetry. Also noted other values and trends if present (e.g. I/O, CVP). Vital Signs 10/10/19 14:31 10/10/19 15:00 10/10/19 15:30 Temperature Pulse Rate 87 92 H 91 H Respiratory Rate 38 H 28 H 25 H Blood Pressure 74/58 85/60 102/69 O2 Sat by Pulse Oximetry 97 95 98 10/10/19 16:00 10/10/19 16:30 10/10/19 17:01 Temperature 101.8 F H 98.6 F Pulse Rate 86 90 88 Respiratory Rate 31 H 30 H 30 H Blood Pressure 103/56 102/77 95/76 O2 Sat by Pulse Oximetry 90 L 99 95 10/10/19 17:46 10/10/19 17:48 10/10/19 18:01 Temperature 101.8 F H Pulse Rate 86 89 88 Respiratory Rate 31 H 40 H 54 H Blood Pressure 195/166 101/69 103/56 O2 Sat by Pulse Oximetry 90 L 94 L 96 10/10/19 18:15 10/10/19 18:30 10/10/19 18:45 Temperature Pulse Rate 89 90 93 H Respiratory Rate 48 H 40 H 48 H Blood Pressure 97/59 96/64 102/59 O2 Sat by Pulse Oximetry 93 L 94 L 92 L 10/10/19 19:00 10/10/19 19:15 10/10/19 19:30 Temperature Pulse Rate 88 86 87 Respiratory Rate 24 44 H 47 H Blood Pressure 106/64 103/67 103/62 O2 Sat by Pulse Oximetry 96 95 94 L 10/10/19 19:39 10/10/19 19:45 10/10/19 20:00 Temperature 99.3 F Pulse Rate 92 H 89 88 Respiratory Rate 20 44 H 46 H Blood Pressure 98/60 103/59 O2 Sat by Pulse Oximetry 94 L 94 L 93 L 10/10/19 20:15 10/10/19 20:30 10/10/19 20:45 Temperature Pulse Rate 90 87 86 Respiratory Rate 41 H 44 H 49 H Blood Pressure 108/62 112/52 90/65 O2 Sat by Pulse Oximetry 97 96 95 10/10/19 21:00 10/10/19 21:15 10/10/19 21:30 Temperature Pulse Rate 87 89 92 H Respiratory Rate 45 H 50 H 45 H Blood Pressure 100/63 95/61 100/63 O2 Sat by Pulse Oximetry 97 97 94 L 10/10/19 21:45 10/10/19 22:00 10/10/19 22:15 Temperature Pulse Rate 83 87 86 Respiratory Rate 37 H 38 H 39 H Blood Pressure 95/60 99/63 92/55 O2 Sat by Pulse Oximetry 93 L 93 L 93 L 10/10/19 22:30 10/10/19 22:45 10/10/19 23:00 Temperature Pulse Rate 86 87 83 Respiratory Rate 38 H 37 H 35 H Blood Pressure 94/56 94/60 95/60 O2 Sat by Pulse Oximetry 93 L 94 L 94 L 10/10/19 23:15 10/10/19 23:30 10/10/19 23:45 Temperature Pulse Rate 82 79 87 Respiratory Rate 33 H 33 H 33 H Blood Pressure 96/61 90/60 90/57 O2 Sat by Pulse Oximetry 95 96 96 10/11/19 00:00 10/11/19 01:00 10/11/19 02:00 Temperature 99 F Pulse Rate 82 83 91 H Respiratory Rate 45 H 35 H 31 H Blood Pressure 97/62 92/59 103/61 O2 Sat by Pulse Oximetry 99 96 96 10/11/19 03:00 10/11/19 04:00 10/11/19 05:00 Temperature 99 F Pulse Rate 78 90 86 Respiratory Rate 30 H 33 H 32 H Blood Pressure 91/65 92/62 98/60 O2 Sat by Pulse Oximetry 96 94 L 97 10/11/19 06:00 10/11/19 06:15 10/11/19 06:30 Temperature Pulse Rate 85 77 78 Respiratory Rate 39 H 31 H 30 H Blood Pressure 95/64 O2 Sat by Pulse Oximetry 99 95 97 10/11/19 06:45 10/11/19 07:00 10/11/19 07:20 Temperature Pulse Rate 89 77 88 Respiratory Rate 35 H 32 H 24 Blood Pressure 99/65 O2 Sat by Pulse Oximetry 98 99 99 10/11/19 08:00 10/11/19 09:01 10/11/19 10:02 Temperature 97.6 F Pulse Rate 73 86 81 Respiratory Rate 31 H 24 30 H Blood Pressure 92/70 92/64 98/63 O2 Sat by Pulse Oximetry 97 94 L 95 10/11/19 11:01 10/11/19 11:24 10/11/19 12:00 Temperature 97.5 F L Pulse Rate 84 84 Respiratory Rate 29 H 29 H Blood Pressure 93/75 93/75 O2 Sat by Pulse Oximetry 98 98 98 10/11/19 12:01 Temperature Pulse Rate 92 H Respiratory Rate 36 H Blood Pressure 95/66 O2 Sat by Pulse Oximetry 96 Intake & Output 10/10/19 10/11/19 10/11/19 19:59 07:59 19:59 Intake Total 2650 / 2650 Output Total 435 / 1135 700 / 1135 Balance -435 / 1515 1950 / 1515 Intake: Intake, IV Amount 1950 / 1950 Intake, IVPB 700 / 700 Output: Output, Urine Void Amount 35 / 35 Output, Urine Flores Amount 400 / 1100 700 / 1100 Physical Examination: General: Lying in bed with no acute distress noted. HEENT: Trachea midline. Mucus pink and moist. Chest: Symmetrical excursion. Diminished breathing sounds bilaterally. Expiratory coarseness bilaterally with left worse than right. CVS: Regular rate and rhythm. Abdomen: Soft. Distended, mildly. Bowel sounds present. Extremities: No pedal edema. Dorsalis pedis diminished b/l. Neuro: Awake. Confused. Not answering simple questions appropriately. Labs and Radiology: Reviewed available labs and radiology values available at time of EMR review. Laboratory Results 10/10/19 10/10/19 10/10/19 10:29 12:33 12:59 WBC RBC Hgb Hct MCV MCH MCHC RDW Std Deviation Plt Count MPV Immature Gran % (Auto) Neut % (Auto) Lymph % (Auto) [place] % (Auto) Eos % (Auto) Baso % (Auto) Immature Gran # (Auto) Neut # (Auto) Lymph # (Auto) [place] # (Auto) Eos # (Auto) Baso # (Auto) Segmented Neutrophils Band Neutrophils Lymphocytes Monocytes Basophils Nucleated RBCs ESR D-Dimer, Quantitative Specimen Type Sample Site pH pCO2 pO2 HCO3 Base Excess Oxyhemoglobin ABG O2 Sat (Calculated) ABG O2 Saturation ABG Carboxyhemoglobin ABG Methemoglobin Angelito Test A-a O2 Difference Total Hemoglobin Lactate Blood Gas Modality FiO2 % Sodium Potassium Chloride Carbon Dioxide Anion Gap BUN Creatinine Estimated GFR/1.73 m2 BUN/Creatinine Ratio Glucose POC Glucose 50 L 116 H D Calculated Osmolality Calcium Total Bilirubin AST ALT Alkaline Phosphatase Creatine Kinase Creatine Kinase Index 0.3 CK-MB (CK-2) 6.30 H Troponin T High Sens C-Reactive Prot, Quant Total Protein Albumin Globulin Albumin/Globulin Ratio Urine Source Urine Color Urine Turbidity Urine pH Ur Specific Anna Urine Protein Ur Glucose (Stick) Ur Ketones (Stick) Urine Blood Urine Nitrite Urine Bilirubin Urobilinogen Dipstick Urine Leukocytes Urine WBC (Auto) Urine RBC (Auto) U Epithel Cells (Auto) Urine Bacteria (Auto) Urine Crystals Small Round Cells Urine Casts Urine Yeast-like Cells Immunoglobulins G,A,M 10/10/19 10/10/19 10/10/19 13:39 15:27 15:27 WBC RBC Hgb Hct MCV MCH MCHC RDW Std Deviation Plt Count MPV Immature Gran % (Auto) Neut % (Auto) Lymph % (Auto) [place] % (Auto) Eos % (Auto) Baso % (Auto) Immature Gran # (Auto) Neut # (Auto) Lymph # (Auto) [place] # (Auto) Eos # (Auto) Baso # (Auto) Segmented Neutrophils Band Neutrophils Lymphocytes Monocytes Basophils Nucleated RBCs ESR D-Dimer, Quantitative 6.18 H Specimen Type Sample Site pH pCO2 pO2 HCO3 Base Excess Oxyhemoglobin ABG O2 Sat (Calculated) ABG O2 Saturation ABG Carboxyhemoglobin ABG Methemoglobin Angelito Test A-a O2 Difference Total Hemoglobin Lactate Blood Gas Modality FiO2 % Sodium Potassium Chloride Carbon Dioxide Anion Gap BUN Creatinine Estimated GFR/1.73 m2 BUN/Creatinine Ratio Glucose POC Glucose Calculated Osmolality Calcium Total Bilirubin AST ALT Alkaline Phosphatase Creatine Kinase Creatine Kinase Index CK-MB (CK-2) Troponin T High Sens C-Reactive Prot, Quant 308.18 H Total Protein Albumin Globulin Albumin/Globulin Ratio Urine Source CATH Urine Color YELLOW Urine Turbidity HAZY Urine pH 6.0 Ur Specific Anna 1.021 Urine Protein 200 A Ur Glucose (Stick) 200 A Ur Ketones (Stick) 20 A Urine Blood LARGE A Urine Nitrite NEGATIVE Urine Bilirubin NEGATIVE Urobilinogen Dipstick 2 A Urine Leukocytes NEGATIVE Urine WBC (Auto) <10 Urine RBC (Auto) <10 U Epithel Cells (Auto) >10 A Urine Bacteria (Auto) NEGATIVE Urine Crystals Not Reportable Small Round Cells Not Reportable Urine Casts GRANULAR PRESENT Urine Yeast-like Cells Not Reportable Immunoglobulins G,A,M 10/10/19 10/10/19 10/10/19 15:27 16:28 20:08 WBC RBC Hgb Hct MCV MCH MCHC RDW Std Deviation Plt Count MPV Immature Gran % (Auto) Neut % (Auto) Lymph % (Auto) [place] % (Auto) Eos % (Auto) Baso % (Auto) Immature Gran # (Auto) Neut # (Auto) Lymph # (Auto) [place] # (Auto) Eos # (Auto) Baso # (Auto) Segmented Neutrophils Band Neutrophils Lymphocytes Monocytes Basophils Nucleated RBCs ESR 92 H D-Dimer, Quantitative Specimen Type Sample Site pH pCO2 pO2 HCO3 Base Excess Oxyhemoglobin ABG O2 Sat (Calculated) ABG O2 Saturation ABG Carboxyhemoglobin ABG Methemoglobin Angelito Test A-a O2 Difference Total Hemoglobin Lactate Blood Gas Modality FiO2 % Sodium Potassium Chloride Carbon Dioxide Anion Gap BUN Creatinine Estimated GFR/1.73 m2 BUN/Creatinine Ratio Glucose POC Glucose Calculated Osmolality Calcium Total Bilirubin AST ALT Alkaline Phosphatase Creatine Kinase 1498 H Creatine Kinase Index 0.3 CK-MB (CK-2) 3.83 Troponin T High Sens C-Reactive Prot, Quant Total Protein Albumin Globulin Albumin/Globulin Ratio Urine Source Urine Color Urine Turbidity Urine pH Ur Specific Anna Urine Protein Ur Glucose (Stick) Ur Ketones (Stick) Urine Blood Urine Nitrite Urine Bilirubin Urobilinogen Dipstick Urine Leukocytes Urine WBC (Auto) Urine RBC (Auto) U Epithel Cells (Auto) Urine Bacteria (Auto) Urine Crystals Small Round Cells Urine Casts Urine Yeast-like Cells Immunoglobulins G,A,M SEE COMMENTS 10/10/19 10/11/19 10/11/19 20:08 04:15 05:30 WBC RBC Hgb Hct MCV MCH MCHC RDW Std Deviation Plt Count MPV Immature Gran % (Auto) Neut % (Auto) Lymph % (Auto) [place] % (Auto) Eos % (Auto) Baso % (Auto) Immature Gran # (Auto) Neut # (Auto) Lymph # (Auto) [place] # (Auto) Eos # (Auto) Baso # (Auto) Segmented Neutrophils Band Neutrophils Lymphocytes Monocytes Basophils Nucleated RBCs ESR D-Dimer, Quantitative Specimen Type ARTERIAL Sample Site R RADIAL pH 7.36 pCO2 42 pO2 89 HCO3 23.5 Base Excess -1.8 Oxyhemoglobin 97.4 ABG O2 Sat (Calculated) 24.6 H ABG O2 Saturation 100.6 H ABG Carboxyhemoglobin 3.10 H ABG Methemoglobin 0.1 Angelito Test YES A-a O2 Difference 215.0 Total Hemoglobin 18.0 H Lactate 1.80 Blood Gas Modality VENTIMASK FiO2 % 50.0 Sodium 138 Potassium 3.9 Chloride 102 Carbon Dioxide 22 L Anion Gap 14 BUN 34 H Creatinine 1.1 Estimated GFR/1.73 m2 > 60 BUN/Creatinine Ratio 31 Glucose 119 H D POC Glucose Calculated Osmolality 284 Calcium 7.3 L D Total Bilirubin 0.76 AST 100 H ALT 33 Alkaline Phosphatase 55 Creatine Kinase Creatine Kinase Index CK-MB (CK-2) Troponin T High Sens 36 H* C-Reactive Prot, Quant Total Protein 5.1 L Albumin 2.7 L Globulin 2.4 Albumin/Globulin Ratio 1.1 Urine Source Urine Color Urine Turbidity Urine pH Ur Specific Anna Urine Protein Ur Glucose (Stick) Ur Ketones (Stick) Urine Blood Urine Nitrite Urine Bilirubin Urobilinogen Dipstick Urine Leukocytes Urine WBC (Auto) Urine RBC (Auto) U Epithel Cells (Auto) Urine Bacteria (Auto) Urine Crystals Small Round Cells Urine Casts Urine Yeast-like Cells Immunoglobulins G,A,M 10/11/19 10/11/19 05:30 05:30 WBC 8.37 RBC 4.22 L Hgb 13.2 L D Hct 39.0 L MCV 92.4 MCH 31.3 H MCHC 33.8 RDW Std Deviation 13.4 Plt Count 203 MPV 9.9 Immature Gran % (Auto) 0.2 Neut % (Auto) 88.3 H Lymph % (Auto) 6.[address] [place] % (Auto) 5.1 Eos % (Auto) 0.0 Baso % (Auto) 0.1 Immature Gran # (Auto) 0.02 Neut # (Auto) 7.38 H Lymph # (Auto) 0.[address] [place] # (Auto) 0.43 Eos # (Auto) 0.00 Baso # (Auto) 0.01 Segmented Neutrophils 88 H Band Neutrophils 2 H Lymphocytes 3 L Monocytes 5 Basophils 2 H Nucleated RBCs 1 H ESR D-Dimer, Quantitative Specimen Type Sample Site pH pCO2 pO2 HCO3 Base Excess Oxyhemoglobin ABG O2 Sat (Calculated) ABG O2 Saturation ABG Carboxyhemoglobin ABG Methemoglobin Angelito Test A-a O2 Difference Total Hemoglobin Lactate Blood Gas Modality FiO2 % Sodium Potassium Chloride Carbon Dioxide Anion Gap BUN Creatinine Estimated GFR/1.73 m2 BUN/Creatinine Ratio Glucose POC Glucose Calculated Osmolality Calcium Total Bilirubin AST ALT Alkaline Phosphatase Creatine Kinase 1021 H Creatine Kinase Index CK-MB (CK-2) Troponin T High Sens C-Reactive Prot, Quant Total Protein Albumin Globulin Albumin/Globulin Ratio Urine Source Urine Color Urine Turbidity Urine pH Ur Specific Anna Urine Protein Ur Glucose (Stick) Ur Ketones (Stick) Urine Blood Urine Nitrite Urine Bilirubin Urobilinogen Dipstick Urine Leukocytes Urine WBC (Auto) Urine RBC (Auto) U Epithel Cells (Auto) Urine Bacteria (Auto) Urine Crystals Small Round Cells Urine Casts Urine Yeast-like Cells Immunoglobulins G,A,M Dr. Campbell evaluated and additional note below. Evaluation time in minutes: 33 minutes. Assessment: Acute hypoxic respiratory failure Bilateral pneumonia, most pronounced in the left lower lobe AMS Elevation in troponin level Renal insufficiency. Improved. Tobacco use. Plan: Continue current treatment and supportive care per admitting and other teams on the case. Antibiotics. Bronchodilators. Input was appreciated from Admitting MD and other teams on the case. See additional notes by Dr. Campbell.
[2019-10-11] MEDS ORDERED: LOVENOX SUBQ ONE (10:07)
[2019-10-11] MEDS ORDERED: LEVAQUIN 500 MG/D5W 500 MG/100 ML IVPB IV SCH (11:30)
--- NOTE | 2019-10-11 13:19 | PROVIDER PROGRESS NOTE ---
Progress Note Pulmonary additional note: Full dictation to follow. I have seen the case, reviewed the EMR, labs, latest images and other medical te ams notes. Also reviewed the CLASSIFIED AD TAKER notes and signed necessary form(s). I have noted changes in condition if any from yesterday and did orders. Please see also signed progress sheet. Prognosis: Guarded for now. Since yesterday, oxyegnation is satisfactory on VM 50%. ABG and Ct seen. He is awake but confused some. I appreciated input from Dr. Clinton. A. Respiratory failure. Pneumonia. Hypoxia. CT seen showing bilateral pneumonia. Case discussed with RN I spent 30 minutes in this process.
[2019-10-12] MEDS: DUONEB (A & A) INH SCH ×6 (03:23→23:50)
--- NOTE | 2019-10-12 03:50 | PROGRESS NOTE ---
DATE: 10/11/2019 SUBJECTIVE: The patient is alert and awake. He states that he does not remember what happened to bring him to the hospital, but he feels a lot better today. OBJECTIVE: Vital Signs: Temperature 97.8 degrees, blood pressure 102/66, heart rate 87, respirations 28, O2 saturation 98% on 3 L nasal cannula. General: This is a chronically ill- appearing, elderly male lying in bed in no acute distress. Heart: S1, S2 normal. Regular rate and rhythm. Lungs: Equal air entry bilaterally. Mild expiratory wheezes. Abdomen: Positive bowel sounds. Soft, nontender, nondistended. Extremities: No edema. No cyanosis. Neurologic: The patient is alert and oriented x3. LABS: White blood cell count 8, hemoglobin 13, hematocrit 39, platelets 203,000. Sodium 138, potassium 3.9, chloride 102, CO2 22, BUN 34, creatinine 1.1, glucose 119. CK 1021. Albumin 2.7. ASSESSMENT AND PLAN: 1. Acute hypoxemic respiratory failure secondary to pneumonia. Continue to treat the underlying infection. 2. Bilateral pneumonia. Continue on broad-spectrum antibiotics, bronchodilator therapy, supplemental oxygen, and will add incentive spirometry. Pulmonary is following. 3. Tobacco dependence. The patient has been counseled about smoking cessation. 4. Elevated troponin. The patient denies having any chest pain. An echocardiogram has been ordered. 5. Chronic obstructive pulmonary disease. Continue with the current treatment regimen. 6. Severe protein-calorie malnutrition. The patient has been started on a heart healthy diet. 7. Deep vein thrombosis prophylaxis. Continue on Lovenox. cc: Tabby Travis MD
[2019-10-12] MEDS: MAXIPIME 2 GM/NS 2 GM/100 ML IVPB IV SCH ×2 (03:55→16:43)
[2019-10-12] MEDS: LOVENOX SUBQ SCH (05:05)
[2019-10-12] MEDS: ZYVOX 600 MG/D5W 600 MG/300 ML IVPB IV SCH ×2 (05:05→17:43)
[2019-10-12 06:03] LABS: BASO# 0.03 X1000 (0.0-0.2); BASO% 0.3 % (0.0-0.8); EOS# 0.02 X1000 (0.0-0.7); EOS% 0.2 % (0.0-10.0); HEMATOCRIT 37.1 % (42.0-52.0); HEMOGLOBIN 12.7 g/dL (14.0-18.0); IMM GRAN# 0.04 X1000 (0.0-0.04); IMM GRAN% 0.5 % (0.0-0.5); LYMPH# 0.78 X1000 (1.2-3.4); LYMPH% 9.1 % (20.5-51.1); MCH 31.4 PG (27-31); MCHC 34.2 g/dL (33-37); MCV 91.6 FL (81-99); MONO# 0.47 X1000 (0.11-0.59); MONO% 5.5 % (1.7-9.3); MPV 9.9 FL (7.4-10.4); NEUT# 7.25 X1000 (1.4-6.5); NEUT% 84.4 % (42.2-75.2); PLT 225 X1000 (130-400); RBC 4.05 XMIL (4.7-6.1); RDW 13.2 % (11.5-14.5); WBC 8.59 X1000 (4.8-10.8)
[2019-10-12 06:32] LABS: AGAP 16; BUN 22 mg/dL (8-22); CALCIUM 7.8 mg/dL (8.8-10.2); CHLORIDE 100 mmol/L (98-107); COSMO 276; CREATININE 0.8 mg/dL (0.7-1.2); ESTIMATED GFR > 60; GLUCOSE 103 mg/dL (70-104); POTASSIUM 3.3 mmol/L (3.5-5.1); SODIUM 136 mmol/L (136-145); TCO2 20 mmol/L (25-35)
--- NOTE | 2019-10-12 07:32 | PROVIDER PROGRESS NOTE ---
Progress Note Pulmonary additional note: I have seen and examined the case, reviewed the EMR, labs, latest images and other medical teams notes. Also reviewed the DATA ARCHITECT MANAGER notes and signed necessary form(s). I have noted changes in condition if any from yesterday and did orders. Please see also signed progress sheet. Since yesterday, he is alternating nasal cannula and RA, tolerating that. n antibiotics and bronchodilators. Prognosis: Guarded for now. I reviewed notes from Dr. Travis. I will order CXR in am Pneumonia bilaterally, respiratory failure is compensated and COPD. I asked administrative staff supervisor about condition changes and if they have any needs in regard to today conditions. I spent 31 minutes in this process.
[2019-10-12] MEDS ORDERED: KLOR-CON PO ONE (08:29)
--- NOTE | 2019-10-12 11:07 | EKG Report ---
Test Performed on : 10/12/2019 10:25:51 AM Test Reason : bradycardia Blood Pressure : / mmHG Vent. Rate : 078 BPM Atrial Rate : 078 BPM P-R Int : 170 ms QRS Dur : 098 ms QT Int : 394 ms P-R-T Axes : 072 -34 049 degrees QTc Int : 449 ms Sinus rhythm. with premature atrial complexes. Left axis deviation Septal infarct , age undetermined Abnormal ECG When compared with ECG of 10-OCT-2019 14:37, premature ventricular complexes. are no longer present premature atrial complexes. are now present Confirmed by Azael GOLDBERG, Gareth Sunshine ([id number]) on 10/13/2019 7:02:22 PM
--- NOTE | 2019-10-12 11:15 | PROVIDER PROGRESS NOTE ---
Progress Note Dr. Campbell Progress Note/Pulmonary and or critical care We appreciated progress of care, Complications, change in diagnosis, and instructions to patient under direct supervision of Dr. Campbell. Subjective: We note the level of consciousness, bed (chair) position, family presence (if any), level of lethargy, feeling of symptoms, and changes from baseline condition/symptom. The patient still appears to be confused, but is improving. Deny pain. He is able to answer some of my simple questions. He has been on room air since early this morning and tolerates well. No fever overnight. 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 He is waiting to be transferred to the medical floor. Objective: Vital Signs: We reviewed EMR current values for Pulse rate, Blood pressure, Pulse rate, respiratory rate and Pulse oximetry. Also noted other values and trends if present (e.g. I/O, CVP). Vital Signs 10/11/19 17:01 10/11/19 18:01 10/11/19 19:01 Temperature Pulse Rate 87 90 89 Respiratory Rate 29 H 31 H 25 H Blood Pressure 102/66 107/64 105/75 O2 Sat by Pulse Oximetry 97 97 98 10/11/19 19:37 10/11/19 20:00 10/11/19 20:01 Temperature 97.9 F Pulse Rate 80 81 93 H Respiratory Rate 24 23 29 H Blood Pressure 105/75 98/63 O2 Sat by Pulse Oximetry 96 93 L 93 L 10/11/19 20:15 10/11/19 20:30 10/11/19 20:45 Temperature Pulse Rate 107 H 96 H 93 H Respiratory Rate 29 H 15 38 H Blood Pressure O2 Sat by Pulse Oximetry 90 L 88 L 93 L 10/11/19 21:00 10/11/19 21:01 10/11/19 21:15 Temperature Pulse Rate 89 91 H 99 H Respiratory Rate 28 H 32 H 36 H Blood Pressure 90/63 O2 Sat by Pulse Oximetry 92 L 96 96 10/11/19 21:30 10/11/19 21:45 10/11/19 22:00 Temperature Pulse Rate 91 H 85 87 Respiratory Rate 26 H 21 20 Blood Pressure O2 Sat by Pulse Oximetry 94 L 94 L 96 10/11/19 22:01 10/11/19 22:15 10/11/19 22:30 Temperature Pulse Rate 89 92 H 83 Respiratory Rate 28 H 28 H 32 H Blood Pressure 119/57 O2 Sat by Pulse Oximetry 94 L 94 L 94 L 10/11/19 22:45 10/11/19 23:00 10/11/19 23:01 Temperature Pulse Rate 92 H 94 H 88 Respiratory Rate 24 24 17 Blood Pressure 100/64 O2 Sat by Pulse Oximetry 94 L 94 L 96 10/11/19 23:15 10/11/19 23:17 10/11/19 23:30 Temperature Pulse Rate 82 93 H Respiratory Rate 24 26 H Blood Pressure O2 Sat by Pulse Oximetry 95 94 L 92 L 10/11/19 23:45 10/12/19 00:00 10/12/19 00:01 Temperature 98.2 F Pulse Rate 98 H 81 93 H Respiratory Rate 32 H 30 H Blood Pressure 93/61 93/61 O2 Sat by Pulse Oximetry 95 93 L 93 L 10/12/19 01:01 10/12/19 02:01 10/12/19 03:02 Temperature Pulse Rate 84 83 78 Respiratory Rate 31 H 30 H 25 H Blood Pressure 105/62 101/66 95/59 O2 Sat by Pulse Oximetry 93 L 94 L 94 L 10/12/19 03:23 10/12/19 04:00 10/12/19 04:01 Temperature 98.5 F Pulse Rate 81 87 Respiratory Rate 24 27 H Blood Pressure 88/58 107/61 O2 Sat by Pulse Oximetry 96 94 L 92 L 10/12/19 05:01 10/12/19 06:01 10/12/19 07:00 Temperature Pulse Rate 83 79 80 Respiratory Rate 25 H 25 H 19 Blood Pressure 88/58 104/70 104/70 O2 Sat by Pulse Oximetry 92 L 94 L 94 L 10/12/19 08:00 10/12/19 08:24 10/12/19 09:00 Temperature 98.1 F Pulse Rate 71 75 80 Respiratory Rate 28 H 24 27 H Blood Pressure 97/61 101/64 O2 Sat by Pulse Oximetry 96 96 96 10/12/19 10:01 10/12/19 11:00 10/12/19 11:53 Temperature 98.4 F Pulse Rate 84 81 74 Respiratory Rate 29 H 30 H 22 Blood Pressure 106/74 98/67 116/67 O2 Sat by Pulse Oximetry 98 95 95 10/12/19 12:06 10/12/19 12:32 Temperature Pulse Rate 74 80 Respiratory Rate 20 Blood Pressure O2 Sat by Pulse Oximetry Intake & Output 10/11/19 10/12/19 10/12/19 19:59 07:59 19:59 Intake Total 1900 / 3740 1840 / 3740 780 / 780 Output Total 400 / 1752 1352 / 1752 600 / 600 Balance 1499 / 1987 / 1987 180 / 180 Intake: Intake, IV Amount 1400 / 2600 1200 / 2600 300 / 300 Intake, IVPB 400 / 400 Intake, Oral Amount 500 / 740 240 / 740 480 / 480 Output: Output, Urine Flores Amount 400 / 1752 1352 / 1752 600 / 600 Other: Percent of Meal Consumed 25% 25% 50% Physical Examination: General: Lying in bed with no acute distress noted. HEENT: Trachea midline. Mucus pink and moist. Poor dentition. Chest: Symmetrical excursion. Expiratory coarseness bilaterally with left worse than right. Mild inspiratory crackles on the right. CVS: Regular rate and rhythm. Abdomen: Soft. Distended, mildly. Bowel sounds present. Extremities: No pedal edema. Dorsalis pedis diminished b/l. Neuro: Awake. Able to answer simple questions appropriately. Able to follow simple commands. Labs and Radiology: Reviewed available labs and radiology values available at time of EMR review. Laboratory Results 10/12/19 10/12/19 05:30 05:30 WBC 8.59 RBC 4.05 L Hgb 12.7 L Hct 37.1 L MCV 91.6 MCH 31.4 H MCHC 34.2 RDW Std Deviation 13.2 Plt Count 225 MPV 9.9 Immature Gran % (Auto) 0.5 Neut % (Auto) 84.4 H Lymph % (Auto) 9.1 L Storey % (Auto) 5.5 Eos % (Auto) 0.2 Baso % (Auto) 0.3 Immature Gran # (Auto) 0.04 Neut # (Auto) 7.25 H Lymph # (Auto) 0.78 L Storey # (Auto) 0.47 Eos # (Auto) 0.02 Baso # (Auto) 0.03 Sodium 136 Potassium 3.3 L D Chloride 100 Carbon Dioxide 20 L Anion Gap 16 BUN 22 Creatinine 0.8 Estimated GFR/1.73 m2 > 60 BUN/Creatinine Ratio 28 Glucose 103 Calculated Osmolality [address] Adrian evaluated and additional note below. Evaluation time in minutes: 34 minutes. Assessment: Acute hypoxic respiratory failure Bilateral pneumonia, most pronounced in the left lower lobe AMS Elevation in troponin level Renal insufficiency. Improved. Tobacco use. Plan: Continue current treatment and supportive care per admitting and other teams on the case. Antibiotics. Bronchodilators. DVT prophylaxis Smoking cessation education. Transfer to medical floor Input was appreciated from Admitting MD and other teams on the case. See additional notes by Dr. Campbell.
[2019-10-13] MEDS: MAXIPIME 2 GM/NS 2 GM/100 ML IVPB IV SCH ×2 (03:52→16:24)
[2019-10-13] MEDS: DUONEB (A & A) INH SCH ×6 (04:05→22:44)
[2019-10-13] MEDS: ZYVOX 600 MG/D5W 600 MG/300 ML IVPB IV SCH ×2 (04:40→17:55)
[2019-10-13] MEDS: LOVENOX SUBQ SCH (06:10)
[2019-10-13 07:56] LABS: BASO# 0.03 X1000 (0.0-0.2); BASO% 0.4 % (0.0-0.8); EOS# 0.03 X1000 (0.0-0.7); EOS% 0.4 % (0.0-10.0); HEMATOCRIT 38.6 % (42.0-52.0); HEMOGLOBIN 13.1 g/dL (14.0-18.0); IMM GRAN# 0.02 X1000 (0.0-0.04); IMM GRAN% 0.3 % (0.0-0.5); LYMPH# 0.99 X1000 (1.2-3.4); LYMPH% 14.4 % (20.5-51.1); MCHC 33.9 g/dL (33-37); MCV 91.5 FL (81-99); MONO# 0.35 X1000 (0.11-0.59); MONO% 5.1 % (1.7-9.3); NEUT# 5.47 X1000 (1.4-6.5); NEUT% 79.4 % (42.2-75.2); PLT 318 X1000 (130-400); RBC 4.22 XMIL (4.7-6.1); RDW 13.5 % (11.5-14.5); WBC 6.89 X1000 (4.8-10.8)
[2019-10-13 08:03] LABS: MAGNESIUM 2.1 mg/dL (1.5-2.7); PHOSPHORUS 2.2 mg/dL (2.7-4.5)
[2019-10-13 08:08] LABS: AGAP 11; BUN 15 mg/dL (8-22); CHLORIDE 100 mmol/L (98-107); COSMO 276; CREATININE 0.8 mg/dL (0.7-1.2); ESTIMATED GFR > 60; GLUCOSE 124 mg/dL (70-104); POTASSIUM 3.2 mmol/L (3.5-5.1); SODIUM 137 mmol/L (136-145); TCO2 26 mmol/L (25-35)
[2019-10-13] MEDS ORDERED: POTASSIUM PHOSPHATE 30 MMOL in NS 250 ML IV ONE (08:11)
--- NOTE | 2019-10-13 09:08 | PROGRESS NOTE ---
DATE: 10/12/2019 SUBJECTIVE: The patient is awake and alert. He is on room air. He states that he feels a lot better. OBJECTIVE: Vital signs: Temperature 98.4 degrees, blood pressure 106/72, heart rate 80, respirations 24, O2 saturation 95% on room air. Intake 1.4 L, output 900. General: This is an elderly male sitting up in bed in no acute distress. Heart: S1, S2 normal. Regular rate and rhythm. Lungs: Equal air entry bilaterally. No wheezing. No rales. Abdomen: Positive bowel sounds, soft, nontender, nondistended. Extremities: No edema, no cyanosis. Neurologic: The patient is alert and oriented x3. LABORATORIES: Hemoglobin 12, hematocrit 37, platelets 225,000. Sodium 136, potassium 3.3, chloride 100, CO2 20, BUN 22, creatinine 0.8. ASSESSMENT AND PLAN: 1. Acute hypoxemic respiratory failure. Resolved. The patient is now on room air. 2. Bilateral lobe pneumonia. Continue with the current antibiotic regimen. Will order a chest x- ray to be done tomorrow. Continue with incentive spirometry and bronchodilator therapy. 3. Tobacco dependence. The patient has been counseled about smoking cessation. 4. Elevated troponin. Likely secondary to the patient's underlying infection. He is chest pain- free at this time. He does have hypokinesis in the apical anterior wall that was seen on the echocardiogram. Further recommendations to follow from the vice president business development. 5. Chronic obstructive pulmonary disease. Continue with bronchodilator therapy. 6. Severe protein calorie malnutrition. We will add Ensure with each meal. 7. Deep vein thrombosis prophylaxis. Continue on Lovenox. 8. Disposition. The patient is stable for transfer to the medical floor. Physical therapy has been consulted. Skip Hoist Operator has been consulted for discharge planning. cc: Tabby Travis MD
[2019-10-13 09:10] LABS: EOS 1 % (1-10); LYMPHS 10 % (21-51); MONO 5 % (1-9); SEGS 83 % (42-75)
--- NOTE | 2019-10-13 09:13 | Diag Imaging Result Doc PS360 ---
EXAM: CHEST-2 VIEWS HISTORY: pneumonia TECHNIQUE: Two views COMPARISON: 10/11/2019 FINDINGS: The lungs are well expanded. The heart is not enlarged. The vessels are not distended. There are small left basilar infiltrates. There is a left-sided granuloma. No pleural effusions. IMPRESSION: Interval improvement in the left-sided pneumonia Electronically signed by Chong Miller 10/13/2019 9:11 AM
[2019-10-13 17:19] LABS: PHOSPHORUS 3.5 mg/dL (2.7-4.5); POTASSIUM 3.2 mmol/L (3.5-5.1)
[2019-10-13] MEDS ORDERED: KLOR-CON PO ONE (17:29)
--- NOTE | 2019-10-13 18:02 | PROGRESS NOTE ---
DATE: 10/13/2019 SUBJECTIVE: The patient is resting comfortably in bed. He states that he feels a lot better today. He is eating well. OBJECTIVE: Vital Signs: Temperature 97 degrees, blood pressure 116/73, heart rate 90, respirations 16, O2 saturations 100% on 2 L nasal cannula. General: This is a chronically ill- appearing elderly male sitting up in bed in no acute distress. Heart: S1, S2. Normal. Lungs: Equal air entry bilaterally. No wheezing. No rales. Abdomen: Positive bowel sounds. Soft, nontender, nondistended. Extremities: No edema. No cyanosis. Neurologic: The patient is alert and oriented x3. LABORATORY DATA: Hemoglobin 13, hematocrit 38, white blood cell count 6.8. Sodium 132, potassium 3.2, chloride 100, CO2 26, BUN 15, creatinine 0.8, glucose 124, phosphorus 2.2, magnesium 2.1. Chest x-ray shows improvement in the left-sided pneumonia. ASSESSMENT AND PLAN: 1. Acute hypoxemic respiratory failure. Improved. Continue to treat the underlying pneumonia with broad-spectrum antibiotics. 2. Bilateral lobe pneumonia. Slowly improving. Continue with the current treatment regimen. 3. Tobacco dependence. The patient has been counseled about smoking cessation. 4. Elevated troponin. The patient is scheduled to undergo a stress test on Wednesday. 5. Chronic obstructive pulmonary disease. Continue with bronchodilator therapy. 6. Severe protein calorie malnutrition. Continue with Ensure with each meal. 7. Constipation. We will start the patient on MiraLAX and Colace. 8. Deep vein thrombosis prophylaxis. Continue on Lovenox. 9. Disposition. Continue with physical therapy. Pacu Nurse has been consulted for discharge planning. cc: Tabby Travis MD
[2019-10-13] MEDS: COLACE PO SCH (22:00)
[2019-10-13] MEDS: MIRALAX PO SCH (22:00)
--- NOTE | 2019-10-13 23:03 | PULMONOLOGY PROGRESS NOTE ---
DATE: 10/13/2019 SUBJECTIVE: The patient is awake, alert, and conversant. It is difficult to follow his logic. His responses to do not always match the question. OBJECTIVE: Vital Signs: The patient has been afebrile for the last 24 hours. Blood pressure 116/73, heart rate 90, respiratory rate 16, oxygen saturation 100% on nasal cannula. HEENT: Pupils are equal and reactive. Oropharynx appears clear. Neck: Supple. Chest: Reveals crackles at the left base. Cardiac: S1-S2. Abdomen: Soft. Extremities: Reveal trace edema. LABORATORIES: White blood count 6.89, hemoglobin 13.1, platelet count 318,000. Sodium 137, potassium 3.2, chloride 100, bicarbonate 26, BUN 15, creatinine 0.8. Microbiology reveals no new data. Chest x-ray reveals improvement in left basilar pneumonia. IMPRESSION: A 64-year-old with: 1. Pneumonia. 2. Acute hypoxemic respiratory failure. 3. Chronic obstructive pulmonary disease. RECOMMENDATIONS: 1. Continue current antibiotic regimen. 2. Continue bronchial hygiene. 3. Wean oxygen as tolerated. 4. Anticipate stress testing on Wednesday for elevated troponin. cc: Sagar Canales MD
[2019-10-14] MEDS: DUONEB (A & A) INH SCH ×6 (02:39→23:40)
[2019-10-14] MEDS: MAXIPIME 2 GM/NS 2 GM/100 ML IVPB IV SCH ×2 (04:37→16:07)
[2019-10-14] MEDS: LOVENOX SUBQ SCH (05:13)
[2019-10-14] MEDS: ZYVOX 600 MG/D5W 600 MG/300 ML IVPB IV SCH ×2 (05:13→17:32)
[2019-10-14 08:41] LABS: AGAP 11; BUN 13 mg/dL (8-22); CALCIUM 8.1 mg/dL (8.8-10.2); CHLORIDE 101 mmol/L (98-107); COSMO 277; CREATININE 0.7 mg/dL (0.7-1.2); ESTIMATED GFR > 60; GLUCOSE 126 mg/dL (70-104); POTASSIUM 4.1 mmol/L (3.5-5.1); SODIUM 138 mmol/L (136-145); TCO2 26 mmol/L (25-35)
[2019-10-14] MEDS: FLOMAX PO SCH (10:18)
[2019-10-14] MEDS: COLACE PO SCH ×2 (10:18→21:00)
[2019-10-14] MEDS: MIRALAX PO SCH ×2 (10:18→21:00)
--- NOTE | 2019-10-14 22:01 | PROGRESS NOTE ---
DATE: 10/14/2019 SUBJECTIVE: The patient is resting comfortably. No acute events noted overnight. OBJECTIVE: Vital signs: Temperature 98 degrees, blood pressure 108/66, heart rate 50, respirations 18, O2 saturation 98% on 2 L nasal cannula. General: This is a chronically ill- appearing elderly male lying in bed in no acute distress. Heart: S1, S2 normal, regular rate and rhythm. Lungs: Clear to auscultation bilaterally. Abdomen: Positive bowel sounds, soft, nontender, nondistended. Extremities: No edema, no cyanosis, no calf tenderness. Neurologic: The patient is oriented to person and place. He does have periods of confusion. LABS: Phosphorus 2.5, potassium 4.1 chloride 101, CO2 of 26. ASSESSMENT AND PLAN: 1. Acute hypoxemic respiratory failure. Improved. Continue on the current treatment regimen. 2. Bilateral lobe pneumonia. Slowly improving. Continue on the current antibiotic regimen. We will continue to try and wean the patient off of supplemental oxygen. 3. Tobacco dependence. The patient has been counseled about smoking cessation. 4. Elevated troponin. The patient is scheduled to undergo a stress test on Wednesday. 5. Severe protein calorie malnutrition. Continue with Ensure. 6. Chronic obstructive pulmonary disease. Stable, continue with bronchodilator therapy. 7. Constipation. Improved, continue on the current laxative regimen. 8. Deep vein thrombosis prophylaxis. Continue on Lovenox. 9. Disposition. Continue with physical therapy. Offc Spec has been consulted for discharge planning. cc: Tabby Travis MD
--- NOTE | 2019-10-14 23:26 | PULMONOLOGY PROGRESS NOTE ---
DATE: 10/14/2019 SUBJECTIVE: The patient is awake, alert, and conversant. He is without specific complaints today. OBJECTIVE: Vital Signs: The patient has been afebrile for the last 24 hours. Blood pressure 108/66, heart rate 50, respiratory rate 18, oxygen saturation 98% on 2 L per nasal cannula. HEENT: Pupils are equal and reactive. Oropharynx appears clear. Neck: Supple. Chest: Reveals crackles at the left lung base. Cardiac: S1-S2. Abdomen: Soft. Extremities: Without edema. LABORATORIES: No new microbiology available today. No new CBC or Chem 7. IMPRESSION: A 64-year-old with: 1. Pneumonia. 2. Chronic obstructive pulmonary disease. 3. Acute hypoxemic failure. PLAN: 1. Continue bronchial hygiene. 2. Continue antibiotic regimen. 3. Wean oxygen as tolerated. 4. Obtain 2-view chest x-ray tomorrow. 5. Anticipate stress testing on Wednesday for elevated troponin earlier in admission. cc: Sagar Canales MD
[2019-10-15] MEDS: DUONEB (A & A) INH SCH ×6 (03:24→23:18)
[2019-10-15] MEDS: MAXIPIME 2 GM/NS 2 GM/100 ML IVPB IV SCH ×2 (04:35→15:35)
[2019-10-15] MEDS: ZYVOX 600 MG/D5W 600 MG/300 ML IVPB IV SCH ×2 (05:21→16:35)
[2019-10-15] MEDS: LOVENOX SUBQ SCH (05:21)
[2019-10-15 07:36] LABS: HEMATOCRIT 39.3 % (42.0-52.0); HEMOGLOBIN 13.1 g/dL (14.0-18.0); MCH 31.3 PG (27-31); MCHC 33.3 g/dL (33-37); MPV 9.2 FL (7.4-10.4); RBC 4.18 XMIL (4.7-6.1); RDW 13.6 % (11.5-14.5); WBC 4.59 X1000 (4.8-10.8)
[2019-10-15 07:57] LABS: AGAP 10; BUN 12 mg/dL (8-22); CALCIUM 8.3 mg/dL (8.8-10.2); CHLORIDE 97 mmol/L (98-107); COSMO 273; CREATININE 0.9 mg/dL (0.7-1.2); ESTIMATED GFR > 60; GLUCOSE 127 mg/dL (70-104); POTASSIUM 4.1 mmol/L (3.5-5.1); SODIUM 136 mmol/L (136-145); TCO2 29 mmol/L (25-35)
--- NOTE | 2019-10-15 08:29 | Diag Imaging Result Doc PS360 ---
EXAM: CHEST-2 VIEWS HISTORY: abnormal exam TECHNIQUE: Two views COMPARISON: 10/13/2019 FINDINGS: Poor inspiratory effort. No cardiomegaly. No pulmonary edema. There are infiltrates in the left lower lobe. IMPRESSION: No interval improvement Electronically signed by Chong Miller 10/15/2019 8:27 AM
[2019-10-15] MEDS: COLACE PO SCH ×2 (09:20→21:39)
[2019-10-15] MEDS: MIRALAX PO SCH ×2 (09:20→21:38)
[2019-10-15] MEDS: FLOMAX PO SCH (09:20)
--- NOTE | 2019-10-15 18:38 | PULMONOLOGY PROGRESS NOTE ---
DATE: 10/15/2019 SUBJECTIVE: The patient was sleeping upon arrival. He is arousable to alert. He reports he is stronger. He is without chest pain. He is without shortness of breath. He reports his cough is decreasing. OBJECTIVE: Vital Signs: The patient has been afebrile for the last 24 hours. Blood pressure 106/66, heart rate 83, respiratory rate 18, oxygen saturation 94% on 2 L per nasal cannula. HEENT: Pupils are equal and reactive. Oropharynx appears clear. Neck: Supple. Chest: Reveals occasional rhonchi bilaterally. Cardiac exam: S1-S2. Abdomen: Soft. Extremities: Without edema. LABORATORIES: Sodium 136, potassium 4.1, chloride 97, bicarbonate 29, BUN 12, creatinine 0.9. White blood count 4.59, hemoglobin 13.1, platelet count 386,000. Chest x-ray reveals residual infiltrates in the left lower lobe. IMPRESSION: 1. A 64-year-old with bilateral pneumonia with radiographic improvement over the last several days. 2. Chronic obstructive pulmonary disease. 3. Hypoxemic respiratory failure. 4. Elevated troponin levels. PLAN: 1. Continue bronchial hygiene. 2. Would continue antibiotics for at least 7 days. 3. Wean oxygen as tolerated. 4. Recommend follow up chest x-ray with his primary care physician in 2 weeks to document ongoing clearing of infiltrates. 5. Anticipate stress testing tomorrow. cc: Sagar Canales MD
--- NOTE | 2019-10-15 18:40 | PROGRESS NOTE ---
DATE: 10/15/2019 SUBJECTIVE: The patient is resting comfortably in bed. No acute events noted overnight. OBJECTIVE: Vital Signs: Temperature 97.6 degrees, blood pressure 108/61, heart rate 83, respirations 16, O2 saturations 95% on 2 L nasal cannula. General: This is a chronically ill- appearing elderly male lying in bed in no acute distress. Heart: S1, S2 normal. Regular rate and rhythm. Lungs: Equal air entry bilaterally. No wheezing. No rales. Abdomen: Positive bowel sounds. Soft, nontender, nondistended. Extremities: No edema, no cyanosis. Neurologic: The patient is alert and oriented to person and place. LABS: Reviewed. ASSESSMENT AND PLAN: 1. Acute hypoxemic respiratory failure. Continue to try and wean the patient off of supplemental oxygen. 2. Community-acquired pneumonia. Continue on the current antibiotic regimen. 3. Tobacco dependence. The patient has been counseled about smoking cessation. 4. Elevated troponin. The patient is scheduled to undergo a stress test on Wednesday. 5. Severe protein-calorie malnutrition. Continue with Ensure with each meal. 6. Chronic obstructive pulmonary disease. Stable. 7. Constipation. The patient has not had a bowel movement yet. We will add a Dulcolax suppository and Colace. 8. Benign prostatic hypertrophy. Continue on Flomax. 9. Deep vein thrombosis prophylaxis. Continue on Lovenox. 10. Disposition. Continue with physical therapy. Manager Financial has been consulted for discharge planning. cc: Tabby Travis MD
[2019-10-15] MEDS: DULCOLAX PR SCH (21:39)
[2019-10-16] MEDS: DUONEB (A & A) INH SCH ×6 (03:50→23:00)
[2019-10-16] MEDS: MAXIPIME 2 GM/NS 2 GM/100 ML IVPB IV SCH ×2 (04:18→16:35)
[2019-10-16] MEDS: ZYVOX 600 MG/D5W 600 MG/300 ML IVPB IV SCH ×2 (05:09→17:55)
[2019-10-16] MEDS: LOVENOX SUBQ SCH (05:09)
[2019-10-16 07:11] LABS: BASO# 0.01 X1000 (0.0-0.2); BASO% 0.3 % (0.0-0.8); EOS# 0.07 X1000 (0.0-0.7); EOS% 1.9 % (0.0-10.0); HEMATOCRIT 40.3 % (42.0-52.0); HEMOGLOBIN 13.2 g/dL (14.0-18.0); IMM GRAN# 0.02 X1000 (0.0-0.04); IMM GRAN% 0.6 % (0.0-0.5); LYMPH# 0.73 X1000 (1.2-3.4); LYMPH% 20.1 % (20.5-51.1); MCH 31.1 PG (27-31); MCHC 32.8 g/dL (33-37); MCV 94.8 FL (81-99); MONO% 8.3 % (1.7-9.3); NEUT% 68.8 % (42.2-75.2); PLT 374 X1000 (130-400); RBC 4.25 XMIL (4.7-6.1); RDW 13.3 % (11.5-14.5); WBC 3.63 X1000 (4.8-10.8)
[2019-10-16 07:36] LABS: MAGNESIUM 1.9 mg/dL (1.5-2.7); PHOSPHORUS 2.3 mg/dL (2.7-4.5)
[2019-10-16 07:38] LABS: AGAP 10; BUN 13 mg/dL (8-22); CALCIUM 8.6 mg/dL (8.8-10.2); CHLORIDE 95 mmol/L (98-107); COSMO 272; CREATININE 0.8 mg/dL (0.7-1.2); ESTIMATED GFR > 60; GLUCOSE 125 mg/dL (70-104); SODIUM 135 mmol/L (136-145); TCO2 30 mmol/L (25-35)
[2019-10-16] MEDS ORDERED: DILAUDID IV ONE (08:43)
--- NOTE | 2019-10-16 09:16 | CARDIOLOGY PROGRESS NOTE ---
DATE: 10/16/2019 CHIEF COMPLAINT: Shortness of breath, abnormal test, question of myocardial infarction. SUBJECTIVE: Mr. Waldron is feeling better now. He is not having chest pain. He is not having shortness of breath. He is going to undergo stress testing today. OBJECTIVE: Blood pressure is 96.52, temperature 98 degrees, pulse 62, respirations 18. He is awake, alert, in no distress. HEENT is unremarkable. Chest with diminished breath sounds bilaterally. Heart sounds are regular and rhythmic. No gallop or murmur. His abdomen is nontender, soft. No masses, no hepatomegaly. Extremities show good pulses. No peripheral edema. Neurologic: Follows commands, moves all 4 extremities. DIAGNOSTIC DATA: Blood work shows sodium 135, potassium 4.0, BUN is 13, creatinine 0.8, carbon dioxide 30, chloride 95, magnesium 1.9. Hemoglobin is 13.2, hematocrit 40.3, white cell count is 3670. IMPRESSION: 1. The patient presented with left lower lobe pneumonia. 2. Possible non-ST myocardial infarction. 3. Extensive coronary atherosclerosis noted on CT scan of the chest. 4. Medical noncompliance. RECOMMENDATIONS: At this time, we will proceed with completion of a stress test, and further advice will be given. If the stress test is unremarkable, then he may be discharged home and follow up with his primary medical doctor. Thank you for asking us to participate in his evaluation. cc: Jason Clinton MD
[2019-10-16] MEDS ORDERED: LEXISCAN ONE (09:27)
--- NOTE | 2019-10-16 11:28 | PROVIDER PROGRESS NOTE ---
Progress Note Dr. Campbell Progress Note/Pulmonary and or critical care We appreciated progress of care, Complications, change in diagnosis, and instructions to patient under direct supervision of Dr. Campbell. Subjective: We note the level of consciousness, bed (chair) position, family presence (if any), level of lethargy, feeling of symptoms, and changes from baseline condition/symptom. The patient is lying in bed with no acute distress. He is on room air. He just came back from stress test. PT is trying to get him up to walk around the hallway at this time. Objective: Vital Signs: We reviewed EMR current values for Pulse rate, Blood pressure, Pulse rate, respiratory rate and Pulse oximetry. Also noted other values and trends if present (e.g. I/O, CVP). Vital Signs 10/15/19 15:58 10/15/19 18:22 10/15/19 20:45 Temperature 97.6 F 98.8 F Pulse Rate 83 95 H 66 Respiratory Rate 16 16 Blood Pressure 108/61 98/60 O2 Sat by Pulse Oximetry 95 96 91 L 10/15/19 23:59 10/16/19 04:30 10/16/19 07:59 Temperature 98.6 F 98.1 F Pulse Rate 67 69 69 Respiratory Rate 16 20 16 Blood Pressure 123/64 132/82 O2 Sat by Pulse Oximetry 92 L 96 93 L 10/16/19 08:18 10/16/19 11:47 Temperature 98.0 F 97.2 F L Pulse Rate 62 65 Respiratory Rate 18 14 Blood Pressure 96/52 95/77 O2 Sat by Pulse Oximetry 100 92 L Intake & Output 10/15/19 10/16/19 10/16/19 19:59 07:59 19:59 Intake Total 558 / 1684 1126 / 1684 Balance 558 / 1684 1126 / 1684 Intake: Intake, IV Amount 166 / 166 Intake, Oral Amount 558 / 1518 960 / 1518 Other: Percent of Meal Consumed 50% Number of Continent Voids Not 3 1 Measured Number of Incontinent Voids 1 Number of Bowel Movements 0 1 Physical Examination: General: Lying in bed with no acute distress noted. HEENT: Trachea midline. Mucus pink and moist. Poor dentition. Chest: Even and unlabored. Symmetrical excursion. Diminished breathing sounds bilaterally. CVS: Regular rate and rhythm. Abdomen: Soft. Distended, mildly. Non-tender. Bowel sounds present. Extremities: No pedal edema. Dorsalis pedis diminished b/l. Neuro: Awake. Able to answer simple questions appropriately. Able to follow simple commands. Labs and Radiology: Reviewed available labs and radiology values available at time of EMR review. Laboratory Results 10/16/19 10/16/19 10/16/19 06:39 06:39 06:39 WBC 3.63 L RBC 4.25 L Hgb 13.2 L Hct 40.3 L MCV 94.8 MCH 31.1 H MCHC 32.8 L RDW Std Deviation 13.3 Plt Count 374 MPV 9.0 Immature Gran % (Auto) 0.6 H Neut % (Auto) 68.8 Lymph % (Auto) 20.1 L [place] % (Auto) 8.3 Eos % (Auto) 1.9 Baso % (Auto) 0.3 Immature Gran # (Auto) 0.02 Neut # (Auto) 2.50 Lymph # (Auto) 0.73 L [place] # (Auto) 0.30 Eos # (Auto) 0.07 Baso # (Auto) 0.01 Sodium 135 L Potassium 4.0 Chloride 95 L Carbon Dioxide 30 Anion Gap 10 BUN 13 Creatinine 0.8 Estimated GFR/1.73 m2 > 60 BUN/Creatinine Ratio 16 Glucose 125 H Calculated Osmolality 272 Calcium 8.6 L Phosphorus 2.[address] Campbell evaluated and additional note below. Evaluation time in minutes: 10 minutes. Assessment: Acute hypoxic respiratory failure Bilateral pneumonia, most pronounced in the left lower lobe COPD Elevation in troponin level. Improved. Stress testing today. Tobacco use. Plan: Continue current treatment and supportive care per admitting and other teams on the case. Antibiotics. Bronchodilators. DVT prophylaxis Smoking cessation education. Physical therapy. Input was appreciated from Admitting MD and other teams on the case.
--- NOTE | 2019-10-16 13:40 | Diag Imaging Result Document ---
PROCEDURE NAME: MYOCARDIAL PERF SCAN, STR/REST - 10/16/2019 SUMMARY: The patient was administered 10.4 mCi of technetium-99m sestamibi, after which resting cardiac images were obtained. The patient was subsequently administered Lexiscan 0.4 mg intravenously, after which the heart rate went from 79 beats per minute to 104 beats per minute. The blood pressure went from 91/63 to 114/50. With Lexiscan, the patient denied chest discomfort. Following the administration of Lexiscan, the patient was administered 30.6 mCi of technetium 99-m sestamibi, after which gated stress cardiac images were obtained. Baseline ECG demonstrated sinus rhythm with sinus arrhythmia, left axis deviation, and nonspecific T-wave abnormality. With Lexiscan, there were no diagnostic ST-segment changes. SPECT images were reconstructed in the short, horizontal long, and vertical long axes. Review of these images demonstrated a medium-sized area of moderately diminished activity in the inferior wall on stress images which appears similar on resting images. No significant reversibility is evident. Gated images demonstrate a calculated left ventricular ejection fraction of 69% with symmetrical wall motion/thickening. CONCLUSIONS: 1. Adequate response to Lexiscan. 2. Clinically negative for chest pain. 3. Electrocardiographically, there were no diagnostic ST-segment changes on ECG following the administration of Lexiscan. 4. Lexiscan sestamibi images demonstrate a medium size region of moderate diminished activity in the inferior wall on stress images, which remains unchanged on resting images and associated with corresponding preserved regional wall motion. Diaphragm attenuation artifact. Suggested, although prior nontransmural inferior infarction cannot entirely be excluded. There is no convincing scintigraphic evidence of inducible myocardial ischemia. Normal left ventricular systolic function demonstrated. cc: MD Oriana Dao PA
[2019-10-16] MEDS: DULCOLAX PR SCH ×2 (15:52→20:10)
--- NOTE | 2019-10-16 16:01 | PROGRESS NOTE ---
DATE: 10/16/2019 SUBJECTIVE: The patient is resting comfortably in bed. He has no complaints at this time. OBJECTIVE: Vital Signs: Temperature 97.2 degrees, blood pressure 95/77, heart rate 65, respirations 14, O2 saturation is 100% on room air. General: This is a chronically ill- appearing, elderly male lying in bed, in no acute distress. Heart: S1, S2 normal. Regular rate and rhythm. Lungs: Clear to auscultation bilaterally. Abdomen: Positive bowel sounds. Soft, nontender, nondistended. Extremities: No edema. No cyanosis. Neurologic: The patient is alert and oriented x3. LABS: White blood cell count 3.6, hemoglobin 13, hematocrit 40, platelets 374,000. Sodium 135, potassium 4, chloride 95, CO2 30, BUN 13, creatinine 0.8, glucose 125. ASSESSMENT AND PLAN: 1. Community-acquired pneumonia. We will repeat the chest x-ray tomorrow. The patient is on day 6 of antibiotic therapy. 2. Elevated troponin. The stress test results are currently pending. 3. Tobacco dependence. The patient has been counseled about smoking cessation. 4. Chronic obstructive pulmonary disease. Stable. 5. Constipation. Improved. Continue with laxative therapy. 6. Benign prostatic hypertrophy. Continue on Flomax. 7. Deep vein thrombosis prophylaxis. Continue on Lovenox. 8. Disposition. Manager Of Data is working on inpatient rehab placement for the patient. cc: Tabby Travis MD
[2019-10-16] MEDS: FLOMAX PO SCH (16:35)
[2019-10-16] MEDS: COLACE PO SCH ×2 (16:35→20:10)
[2019-10-16] MEDS: MIRALAX PO SCH ×2 (16:36→20:10)
[2019-10-17] MEDS: DUONEB (A & A) INH SCH ×6 (03:33→23:29)
[2019-10-17] MEDS: MAXIPIME 2 GM/NS 2 GM/100 ML IVPB IV SCH (04:32)
[2019-10-17] MEDS: ZYVOX 600 MG/D5W 600 MG/300 ML IVPB IV SCH (05:42)
[2019-10-17] MEDS: LOVENOX SUBQ SCH ×2 (05:42→05:44)
[2019-10-17] MEDS: COLACE PO SCH (11:16)
[2019-10-17] MEDS: MIRALAX PO SCH (11:16)
[2019-10-17] MEDS: FLOMAX PO SCH (11:17)
[2019-10-17] MEDS: LEVAQUIN PO SCH (11:17)
[2019-10-17] MEDS: DULCOLAX PR SCH (11:17)
--- NOTE | 2019-10-17 12:41 | PROVIDER PROGRESS NOTE ---
Progress Note Dr. Campbell Progress Note/Pulmonary and or critical care We appreciated progress of care, Complications, change in diagnosis, and instructions to patient under direct supervision of Dr. Campbell. Subjective: We note the level of consciousness, bed (chair) position, family presence (if any), level of lethargy, feeling of symptoms, and changes from baseline condition/symptom. The patient is lying in bed with no acute distress. He is on NC at 2L. C/o some headache. Appears confused, but easy to be oriented. He apparently refused medication this am. Objective: Vital Signs: We reviewed EMR current values for Pulse rate, Blood pressure, Pulse rate, resp iratory rate and Pulse oximetry. Also noted other values and trends if present (e.g. I/O, CVP). Vital Signs 10/16/19 18:01 10/16/19 20:00 10/16/19 20:30 Temperature 98.0 F 98.5 F Pulse Rate 82 62 71 Respiratory Rate 18 18 16 Blood Pressure 116/66 113/76 O2 Sat by Pulse Oximetry 93 L 94 L 95 10/16/19 23:22 10/17/19 04:24 10/17/19 08:10 Temperature 97.8 F 98.3 F Pulse Rate 75 67 72 Respiratory Rate 16 18 14 Blood Pressure 126/68 108/69 O2 Sat by Pulse Oximetry 94 L 92 L 94 L Intake & Output 10/16/19 10/17/19 10/17/19 19:59 07:59 19:59 Intake Total 800 / 978 178 / 978 Output Total 0 / 0 Balance 800 / 978 178 / 978 Intake: Intake, IV Amount 0 / 58 58 / 58 Intake, Oral Amount 800 / 920 120 / 920 Output: Output, Urine Void Amount 0 / 0 Other: Percent of Meal Consumed 100% Number of Continent Voids Not 4 Measured Number of Incontinent Voids 2 Number of Bowel Movements 2 0 Physical Examination: General: Lying in bed with no acute distress noted. HEENT: Trachea midline. Mucus pink and moist. Poor dentition. Chest: Even and unlabored. Symmetrical excursion. Clear to auscultation. CVS: Regular rate and rhythm. Abdomen: Soft. Distended, mildly. Non-tender. Bowel sounds present. Extremities: No pedal edema. Dorsalis pedis diminished b/l. Neuro: Awake. Confused, but easy to be oriented. Able to follow simple commands. Not answer questions appropriately at times. Labs and Radiology: Reviewed available labs and radiology values available at time of EMR review. Dr. Campbell evaluated and additional note below. Evaluation time in minutes: 10 minutes. Assessment: Acute hypoxic respiratory failure Bilateral pneumonia, most pronounced in the left lower lobe COPD Elevation in troponin level. Improved. Stress testing on 10/16/19. Tobacco use. Plan: Continue current treatment and supportive care per admitting and other teams on the case. Antibiotics. Bronchodilators. DVT prophylaxis Smoking cessation education. Physical therapy. Discharge planning per hospitalist. Input was appreciated from Admitting MD and other teams on the case.
--- NOTE | 2019-10-17 14:37 | Diag Imaging Result Doc PS360 ---
EXAM: CHEST-1 VIEW HISTORY: pneumonia TECHNIQUE: Single view COMPARISON: 10/15/2019 FINDINGS: The lungs are well expanded. The heart is not enlarged. The vessels are not distended. There are mild increased interstitial markings in the left base similar to the prior exam. Left granuloma. No effusion identified. IMPRESSION: Stable chest Electronically signed by Chong Miller 10/17/2019 2:35 PM
--- NOTE | 2019-10-17 17:48 | PROGRESS NOTE ---
DATE: 10/17/2019 INTERVAL HISTORY: No acute events overnight, no new complaints. Oxygenation continues to improve. Still fairly weak. REVIEW OF SYSTEMS: Limited by patient mental status but no major complaints. LABS: WBC 3.6, hemoglobin 13.2, hematocrit 40.3, platelets 374,000. Sodium 135, potassium 4, BUN 13, creatinine 0.8, glucose 125, magnesium 1.9. VITALS: T-max 98.5 degrees, pulse 72, respirations 14, blood pressure 108/69, O2 saturation 94% on 2 L by nasal cannula. IMAGING: Chest x-ray with continued mildly increased interstitial markings at the left base but otherwise no acute process. PHYSICAL EXAMINATION: General: No acute distress, vitals as above. HEENT: Normocephalic, atraumatic. Cardiovascular: Regular rate and rhythm. No murmurs noted. Pulmonary: Essentially clear to auscultation bilaterally at this point. Abdomen: Soft, nontender, nondistended, bowel sounds positive. Extremities: Peripheral pulses intact. No clubbing or cyanosis. Neurologic: Cranial nerves grossly intact, no focal deficits identified . Psychiatric: Awake, alert, oriented to person and year but not month. Many responses do not really make sense. ASSESSMENT AND PLAN: 1. Pneumonia, acute hypoxic respiratory failure. Patient has had saturations as low as 86 during this hospitalization but somewhat improved. Still low normal but acceptable saturations on room air for the most part. On antibiotics with Levaquin which we will plan to continue to finish course of treatment. 2. Encephalopathy, likely dementia. Family reports some issues with confusion at home. Strongly suspect dementia as underlying cause, has had waxing and waning confusion here. Suspect he is pretty close to his baseline at this point. 3. Elevated troponin, troponin only minimally elevated and flat. Appears to be demand ischemia/type 2 myocardial infarction related to pneumonia. No need for further intervention. 4. Chronic obstructive pulmonary disease no sign exacerbation at this time, continue to monitor. 5. Benign prostatic hypertrophy. Continue home tamsulosin. 6. Hyponatremia resolved. Monitor labs. 7. Hypokalemia, much improved with repletion. Continue to monitor. 8. Anemia stable to slightly improved, monitor labs. 9. Disposition. Oxygen still low normal but hypoxia resolved doing okay on p.o. antibiotics. Attempting to get patient into rehab. If that appears to not be an option then will anticipate discharge home with home health the next day or 2.
[2019-10-18] MEDS: DUONEB (A & A) INH SCH ×6 (03:54→23:47)
[2019-10-18] MEDS: MIRALAX PO SCH ×3 (05:58→21:00)
[2019-10-18] MEDS: DULCOLAX PR SCH ×3 (05:58→21:00)
[2019-10-18] MEDS: COLACE PO SCH ×3 (05:58→21:00)
[2019-10-18] MEDS: LOVENOX SUBQ SCH ×2 (06:28→06:29)
[2019-10-18] MEDS: LEVAQUIN PO SCH (10:21)
[2019-10-18] MEDS: FLOMAX PO SCH (10:22)
--- NOTE | 2019-10-18 12:35 | PROVIDER PROGRESS NOTE ---
Progress Note Dr. Campbell Progress Note/Pulmonary and or critical care We appreciated progress of care, Complications, change in diagnosis, and instructions to patient under direct supervision of Dr. Campbell. Subjective: We note the level of consciousness, bed (chair) position, family presence (if any), level of lethargy, feeling of symptoms, and changes from baseline condition/symptom. The patient is lying in bed with c/o headache, BUQ stomach ache and mild nausea. He has left hand on his forehead and right hand on his epigastric area. He said I never this pain before. I have been sick for a long time. I cannot eat. When I put my hand on his RUQ, his face starts grimacing. He does not answer quest ions appropriately. He is on room air. RN is at the bedside and she is waiting for Dr. Ny call. Objective: Vital Signs: We reviewed EMR current values for Pulse rate, Blood pressure, Pulse rate, respiratory rate and Pulse oximetry. Also noted other values and trends if present (e.g. I/O, CVP). Vital Signs 10/17/19 19:46 10/17/19 20:00 10/18/19 00:00 Temperature 98.4 F 98.0 F Pulse Rate 75 81 69 Respiratory Rate 17 17 17 Blood Pressure 108/83 136/58 O2 Sat by Pulse Oximetry 91 L 95 95 10/18/19 04:00 10/18/19 07:05 10/18/19 07:52 Temperature 97.9 F 98.6 F Pulse Rate 78 74 68 Respiratory Rate 18 18 14 Blood Pressure 136/72 100/64 O2 Sat by Pulse Oximetry 97 91 L 94 L 10/18/19 11:15 Temperature 97.6 F Pulse Rate 68 Respiratory Rate 20 Blood Pressure 108/70 O2 Sat by Pulse Oximetry 94 L Intake & Output 10/17/19 10/18/19 10/18/19 19:59 07:59 19:59 Intake Total 240 / 240 620 / 620 Output Total 300 / 300 Balance 240 / -60 -300 / -60 620 / 620 Intake: Intake, Oral Amount 240 / 240 620 / 620 Output: Output, Urine Void Amount 300 / 300 Other: Percent of Meal Consumed 25% 50% Number of Continent Voids Not 3 2 Measured Number of Bowel Movements 0 0 Physical Examination: General: Lying in bed with no acute distress noted. HEENT: Trachea midline. Mucus pink and moist. Poor dentition. Chest: Even and unlabored. Symmetrical excursion. Clear to auscultation. CVS: Regular rate and rhythm. Abdomen: Soft. Distended, mildly. BUQ and epigastric tenderness. Bowel sounds present. Extremities: No pedal edema. Dorsalis pedis diminished b/l. Neuro: Awake. Not answer questions appropriately at times. Labs and Radiology: Reviewed available labs and radiology values available at time of EMR review. Dr. Campbell evaluated and additional note below. Evaluation time in minutes: 10 minutes. Assessment: Acute hypoxic respiratory failure Bilateral pneumonia, most pronounced in the left lower lobe COPD Elevation in troponin level. Improved. Stress testing on 10/16/19. Tobacco use. Plan: Continue current treatment and supportive care per admitting and other teams on the case. CT abdomen/pelvis with oral contrast. Antibiotics. Bronchodilators. DVT prophylaxis Smoking cessation education. Physical therapy. Discharge planning per hospitalist. Input was appreciated from Admitting MD and other teams on the case.
[2019-10-18] MEDS ORDERED: ZOFRAN IV PRN (12:42)
[2019-10-18] MEDS ORDERED: TYLENOL PO PRN (12:42)
--- NOTE | 2019-10-18 15:32 | Diag Imaging Result Doc PS360 ---
CT ABD/PELVIS W/ORAL CONT ONLY - 10/18/2019 INDICATION: Acute BUQ and epigastric abd pain with nausea COMPARISON: None FINDINGS: There is scattered tree-in-bud infiltrate throughout both lung bases. This is worse in the lingula and left lower lobe. There is a trace left pleural effusion. Heart size is normal with no pericardial effusion. No radiodense renal stones. No hydronephrosis or hydroureter. Abdominal organs all appear grossly normal. No bowel obstruction or inflammation. There is moderate diverticulosis of the sigmoid colon. Urinary bladder, prostate, and rectum are normal. No free air or free fluid. There are moderate degenerative changes of the spine. No acute or suspicious bony lesion. IMPRESSION: 1. Significant pneumonia in both lung bases left greater than right. Trace left pleural effusion. 2. Diverticulosis coli. This exam was performed using automated exposure control, adjustment of mA or kV according to patient size, and/or use of iterative reconstruction technique Electronically signed by Beck Amor 10/18/2019 3:30 PM
[2019-10-18] MEDS: PROTONIX PO SCH (18:06)
--- NOTE | 2019-10-18 19:46 | PROGRESS NOTE ---
DATE: 10/18/2019 INTERVAL HISTORY: The patient is approximately stable. O2 saturation is still good. The patient remains pretty confused, although alert and pleasant. Responses to queries and commands frequently have nothing to do with what was asked. The patient is complaining of some mild upper abdominal discomfort, but difficult to nail him down on the characterization of this severity or how long it has been going on. No signs or symptoms of acute bleed or other major pathology. REVIEW OF SYSTEMS: Difficult to obtain secondary to patient's mental status. LABS: WBC 3.6, hemoglobin 13.2, hematocrit 40.3, platelets 374,000. Sodium 135, potassium 4, BUN 13, creatinine 0.8, glucose 125, phosphorus 2.3, magnesium 1.9. IMAGING: CT of abdomen and pelvis with no intra-abdominal pathology, does show approximately stable infiltrates which were previously noted. VITALS: Temperature max 98.6 degrees, pulse 65, respirations 18, blood pressure 110/68, O2 saturation 95% on room air. PHYSICAL EXAMINATION: General: No acute distress. Vitals: As above. HEENT: Normocephalic, atraumatic. Moist mucous membranes. Cardiovascular: Regular rate and rhythm. No murmurs noted. Pulmonary: Minimal bibasilar crackles, otherwise clear to auscultation bilaterally. Abdomen: Soft, minimal epigastric tenderness, nondistended. Bowel sounds positive. Extremities: Peripheral pulses intact. No clubbing or cyanosis. Neurologic: Cranial nerves grossly intact. No focal deficit seen. Remains quite hard of hearing. Psychiatric: Awake, alert, oriented to person only. Continues to have many nonsensical responses. ASSESSMENT AND PLAN: 1. Pneumonia, acute hypoxic respiratory failure. Hypoxia is now resolved. Still some infiltrates on imaging, but clinically looks much improved. No fevers. No leukocytosis. Continue antibiotics with Levaquin. 2. Encephalopathy, likely dementia. The family does report some issues with confusion at home. Strongly suspect some underlying dementia with some delirium here. The patient has been pleasant throughout, never been significantly agitated, but he continues to be somewhat confused. 3. Demand ischemia/type 2 myocardial infarction. Patient with minimally elevated troponin on admission, was flat on recheck. No need for further intervention. 4. Chronic obstructive pulmonary disease. No sign of exacerbation at this time. Continue to monitor. 5. Benign prostatic hypertrophy. Continue home tamsulosin. 6. Hyponatremia, minimal. Monitor labs, but no need for acute intervention. 7. Anemia. Remains stable. No signs or symptoms of bleeding. 8. Upper abdominal pain, possibly reflux. Will place patient on PPI and monitor. 9. Disposition. Patient's hypoxia remains resolved, no other major issues. Placement pending. [facility]
[2019-10-19] MEDS: DUONEB (A & A) INH SCH ×3 (03:38→11:25)
[2019-10-19] MEDS: LOVENOX SUBQ SCH ×2 (07:35→07:36)
[2019-10-19] MEDS: PROTONIX PO SCH (07:36)
[2019-10-19] MEDS: FLOMAX PO SCH (09:50)
[2019-10-19] MEDS: LEVAQUIN PO SCH (09:50)
[2019-10-19] MEDS: DULCOLAX PR SCH (09:51)
[2019-10-19] MEDS: MIRALAX PO SCH (09:51)
[2019-10-19] MEDS: COLACE PO SCH (09:51)
[2019-10-19 11:28] VITALS: BP 79/17
--- NOTE | 2019-10-20 16:08 | DISCHARGE SUMMARY ---
ADMISSION DATE: 10/10/2019 DISCHARGE DATE: 10/19/2019 Discharged against medical advice. CONSULTS: 1. Cardiology, Dr. Clinton. 2. Pulmonology, Dr. Canales and Dr. Campbell. PERTINENT STUDIES: 1. Initial chest x-ray with left lower lobe pneumonia. 2. CT head with sinusitis but no other acute process. 3. Follow-up CT chest with bilateral pneumonia most prominent on the left on October 10. 4. Cardiac stress test with normal EF. No reversible ischemia. 5. Repeat chest x-ray on October 17 with no evidence of ongoing pneumonia. DISCHARGE DIAGNOSES: 1. Noncompliant, patient left against medical advice. 2. Pneumonia. 3. Acute hypoxic respiratory failure, resolved. 4. Metabolic encephalopathy. 5. Likely dementia. 6. Demand ischemia/type 2 myocardial infarction. 7. Chronic obstructive pulmonary disease. 8. Benign prostatic hypertrophy. 9. Hyponatremia. 10. Anemia. 11. Likely GERD. HOSPITAL COURSE: The patient presented initially with hypoxia down to 82% on room air. He was found down on the floor. He was significantly confused at that time. Initial workup showed pneumonia. No hypercapnia. He was placed on empiric antibiotics and did require BiPAP briefly but with antibiotics his oxygenation improved and he is able to come off of the BiPAP. He was later transitioned to Levaquin which he was almost finished with at the time of discharge. The patient was also noted to have minimally elevated high sensitivity troponin at 36, but remained flat and was thought to be demand ischemia related to his hypoxia rather than any primary cardiac issue. Cardiology did evaluate the patient, performed a stress test and echo which were essentially unremarkable. The patient's encephalopathy improved. He began waking up well. He remained somewhat confused for most of his hospitalization, however. The patient was stable for several days with efforts of placement ongoing. On the day of discharge, the patient's encephalopathy had appeared to entirely resolve. He was answering all questions appropriately, following commands well, and insisted that he wanted to go home rather than to rehab. I asked the patient to give us a little time, as there was fear that his improvement in mental status might be transient. I was later called and informed the patient had eloped from the hospital and not returned. Presumably, patient left against medical advice. He had been off O2 for several days while ideally I would have continued him on oral antibiotics for a few days. Yet he was close to finishing his course of treatment anyway. The patient left prior to any discussion of discharge medications or follow-up. LAST VITALS: Temperature 97.7 degrees, pulse 93, respirations 18, blood pressure 78/[*], O2 saturation 95% on room air. DISCHARGE DIET: Patient left against medical advice. DISCHARGE MEDICATIONS: Patient left against medical advice. FOLLOWUP AND PLAN: The patient left against medical advice. Greater than 30 minutes were involved in this discharge.
== END 2019-10-19 11:50 | disposition left against medical advice (07) | DRG 189 ==
LOC: EDBD → ED 09:08 → SUATTDRO 11:45 → EDIPHOLD 11:45 → ICU 16:47 → 4N 10-12 11:34
PROVIDERS: ATTEND Internal Medicine